=== PATIENT | male | born 1985 | race Caucasian/White ===

== ENCOUNTER 2016-04-28 12:56 | Inpatient (IN) | payer MEDICAID, OTHER ==
--- NOTE | 2016-04-28 13:19 | ED ---
Psych HPI - General Chief Complaint: Psychiatric Symptoms Stated Complaint: mental status Time Seen by Provider: 04/28/16 13:06 Source: patient, RN notes reviewed Mode of arrival: ambulatory Limitations: no limitations - History of Present Illness Initial Comments: 30-year-old male presents emergency Department for psychiatric evaluation. Patient is requesting be placed in movement. Patient states that he was on this before with other antipsychotics. Patient states he has been admitted the psychiatric facilities in the past. Patient denies suicidal or homicidal. Patient states he does not feel a states he just needs to be calm down. Patient denies any illicit drug use no alcohol use at this time. - Related Data Previous Rx's Medication Instructions Recorded OLANZapine [ZyPREXA] 20 mg PO DAILY #30 tablet 12/02/14 lamoTRIgine [LaMICtal] 50 mg PO BID #60 tab 12/02/14 Allergies Allergy/AdvReac Type Severity Reaction Status Date / Time divalproex sodium AdvReac Confusion Verified 04/28/16 13:02 [From Depakote] lithium AdvReac Unknown Verified 04/28/16 13:02 Review of Systems ROS Statement: Those systems with pertinent positive or pertinent negative responses have been documented in the HPI. ROS Other: All systems not noted in ROS Statement are negative. Past Medical History Past Medical History: No Reported History History of Any Multi-Drug Resistant Organisms: None Reported Past Surgical History: No Surgical Hx Reported Past Anesthesia/Blood Transfusion Reactions: No Reported Reaction Past Psychological History: Anxiety, Bipolar, Depression, Schizoaffective Disorder Smoking Status: Former smoker Past Alcohol Use History: None Reported Past Drug Use History: None Reported General Exam Limitations: no limitations General appearance: alert, in no apparent distress Head exam: Present: atraumatic, normocephalic, normal inspection Eye exam: Present: normal appearance, PERRL, EOMI. Absent: scleral icterus, conjunctival injection, periorbital swelling ENT exam: Present: normal exam, normal oropharynx, mucous membranes moist, TM's normal bilaterally, normal external ear exam Neck exam: Present: normal inspection, full ROM. Absent: tenderness, meningismus, lymphadenopathy Respiratory exam: Present: normal lung sounds bilaterally. Absent: respiratory distress, wheezes, rales, rhonchi, stridor Cardiovascular Exam: Present: normal rhythm, tachycardia, normal heart sounds. Absent: systolic murmur, diastolic murmur, rubs, gallop, clicks Neurological exam: Present: alert, oriented X3, CN II-XII intact Psychiatric exam: Present: anxious, other (Flight of ideas) Skin exam: Present: warm, dry, intact, normal color. Absent: rash Course Vital Signs 04/28/16 13:00 Temperature 98.1 F Pulse Rate 124 H Respiratory 20 Rate Blood Pressure 146/109 O2 Sat by Pulse 99 Oximetry Medical Decision Making - Lab Data Lab Results 04/28/16 Range/Units 13:45 Urine Opiates Screen Not Detected (NotDetected) Ur Oxycodone Screen Not Detected (NotDetected) Urine Methadone Screen Not Detected (NotDetected) Ur Propoxyphene Screen Not Detected (NotDetected) Ur Barbiturates Screen Not Detected (NotDetected) U Tricyclic Antidepress Not Detected (NotDetected) Ur Phencyclidine Scrn Not Detected (NotDetected) Ur Amphetamines Screen Not Detected (NotDetected) U Methamphetamines Scrn Not Detected (NotDetected) U Benzodiazepines Scrn Not Detected (NotDetected) Urine Cocaine Screen Not Detected (NotDetected) U Marijuana (THC) Screen Not Detected (NotDetected) Disposition Clinical Impression: Bipolar disorder, Acute psychosis Disposition: ADMITTED IP TO THIS [facility] Condition: Fair
[2016-04-28] MEDS ORDERED: ZIPRASIDONE 20 MG VIAL IM PRN (16:19)
[2016-04-28] MEDS ORDERED: LORazepam 2 MG/ML SYRINGE IM PRN (16:22)
[2016-04-28 16:55] LABS: Appearance,Urine Clear (Clear); Bilirubin,Urine Negative (Negative); Glucose,Urine (UA) Negative (Negative); Ketones,Urine Negative (Negative); Leukocyte Esterase,Urine Negative (Negative); Nitrite,Urine Negative (Negative); Protein,Urine Negative (Negative); Specific Gravity,Urine 1.005 (1.001-1.035); UA Billing (MACRO vs. MICRO) CHEM; Urobilinogen,Urine <2.0 mg/dL (<2.0)
[2016-04-28 17:07] VITALS: BMI 25.9
[2016-04-29 09:27] LABS: Basophils # (A) 0.1 k/uL (0-0.2); Basophils % (A) 1 %; CH 32.5; CHCM 33.8; Eosinophils # (A) 0.1 k/uL (0-0.7); Eosinophils % (A) 1 %; HCT 49.2 % (39.0-53.0); HDW 2.43; HGB 16.7 gm/dL (13.0-17.5); Luc # (Auto) 0.28; Luc % (Auto) 3; Lymphocytes # (A) 3.5 k/uL (1.0-4.8); Lymphocytes % (A) 35 %; MCH 32.8 pg (25.0-35.0); MCHC 33.9 g/dL (31.0-37.0); MCV 96.6 fL (80.0-100.0); Mean Platelet Volume 7.8; Monocytes # (A) 0.5 k/uL (0-1.0); Monocytes % (A) 5 %; Neutrophils # (A) 5.6 k/uL (1.3-7.7); Neutrophils % (A) 56 %; RDW 13.5 % (11.5-15.5); WBC (Perox) 10.18
[2016-04-29 09:46] LABS: ALT 57 U/L (21-72); AST 27 U/L (17-59); Alkaline Phosphatase 61 U/L (38-126); Anion Gap 15 mmol/L; Blood Urea Nitrogen 12 mg/dL (9-20); Calcium 10.3 mg/dL (8.4-10.2); Carbon Dioxide 26 mmol/L (22-30); Chloride 103 mmol/L (98-107); Glucose 162 mg/dL (74-99); Non-African American GFR(MDRD) >60 (>60 ml/min/1.73 sqM); Potassium 4.1 mmol/L (3.5-5.1); Sodium 144 mmol/L (137-145); Total Bilirubin 1.3 mg/dL (0.2-1.3); Total Protein 7.9 g/dL (6.3-8.2)
[2016-04-29] MEDS ORDERED: ZIPRASIDONE 20 MG VIAL IM ONE (09:53)
[2016-04-29] MEDS ORDERED: WATER FOR INJECTION, STERILE 10 ML IV ONE (09:53)
--- NOTE | 2016-04-29 10:16 | P.HP ---
Psychiatric H&P - . History & Physical: Allergies Allergy/AdvReac Type Severity Reaction Status Date / Time divalproex sodium AdvReac Confusion Verified 04/28/16 16:46 [From Depakote] lithium AdvReac Unknown Verified 04/28/16 16:46 Vital Signs Temp 98.5 F 04/29/16 03:02 Pulse 101 H 04/29/16 03:02 Resp 16 04/29/16 03:02 BP 137/106 04/29/16 03:02 Pulse Ox 96 04/28/16 17:32 Intake & Output 04/28/16 04/29/16 04/29/16 17:59 06:59 18:59 Weight 96.7 kg Laboratory Last Values WBC 10.0 k/uL (3.8-10.6) 04/29/16 09:04 RBC 5.10 m/uL (4.30-5.90) 04/29/16 09:04 Hgb 16.7 gm/dL (13.0-17.5) 04/29/16 09:04 Hct 49.2 % (39.0-53.0) 04/29/16 09:04 MCV 96.6 fL (80.0-100.0) 04/29/16 09:04 MCH 32.8 pg (25.0-35.0) 04/29/16 09:04 MCHC 33.9 g/dL (31.0-37.0) 04/29/16 09:04 RDW 13.5 % (11.5-15.5) 04/29/16 09:04 Plt Count 288 k/uL (150-450) 04/29/16 09:04 Neutrophils % 56 % 04/29/16 09:04 Lymphocytes % 35 % 04/29/16 09:04 Monocytes % 5 % 04/29/16 09:04 Eosinophils % 1 % 04/29/16 09:04 Basophils % 1 % 04/29/16 09:04 Neutrophils # 5.6 k/uL (1.3-7.7) 04/29/16 09:04 Lymphocytes # 3.5 k/uL (1.0-4.8) 04/29/16 09:04 Monocytes # 0.5 k/uL (0-1.0) 04/29/16 09:04 Eosinophils # 0.1 k/uL (0-0.7) 04/29/16 09:04 Basophils # 0.1 k/uL (0-0.2) 04/29/16 09:04 Urine Color Colorless 04/28/16 13:45 Urine Appearance Clear (Clear) 04/28/16 13:45 Urine pH 5.0 (5.0-8.0) 04/28/16 13:45 Ur Specific Sophia 1.005 (1.001-1.035) 04/28/16 13:45 Urine Protein Negative (Negative) 04/28/16 13:45 Urine Glucose (UA) Negative (Negative) 04/28/16 13:45 Urine Ketones Negative (Negative) 04/28/16 13:45 Urine Blood Negative (Negative) 04/28/16 13:45 Urine Nitrate Negative (Negative) 04/28/16 13:45 Urine Bilirubin Negative (Negative) 04/28/16 13:45 Urine Urobilinogen <2.0 mg/dL (<2.0) 04/28/16 13:45 Ur Leukocyte Esterase Negative (Negative) 04/28/16 13:45 Urine Opiates Screen Not Detected (NotDetected) 04/28/16 13:45 Ur Oxycodone Screen Not Detected (NotDetected) 04/28/16 13:45 Urine Methadone Screen Not Detected (NotDetected) 04/28/16 13:45 Ur Propoxyphene Screen Not Detected (NotDetected) 04/28/16 13:45 Ur Barbiturates Screen Not Detected (NotDetected) 04/28/16 13:45 U Tricyclic Antidepress Not Detected (NotDetected) 04/28/16 13:45 Ur Phencyclidine Scrn Not Detected (NotDetected) 04/28/16 13:45 Ur Amphetamines Screen Not Detected (NotDetected) 04/28/16 13:45 U Methamphetamines Scrn Not Detected (NotDetected) 04/28/16 13:45 U Benzodiazepines Scrn Not Detected (NotDetected) 04/28/16 13:45 Urine Cocaine Screen Not Detected (NotDetected) 04/28/16 13:45 U Marijuana (THC) Screen Not Detected (NotDetected) 04/28/16 13:45 04/29/16 10:06 IDENTIFYING DATA: This patient is a 30-year-old male who is admitted to the mental health unit through the emergency room for acute symptoms of psychosis. HPI: The patient's presents acutely psychotic. He refers to himself in the third person and everything he discusses is in a adventist context. His thought process is grossly disorganized. In session he has an ongoing conversation with himself. He does endorse difficulty sleeping he states appetite is been stable. He does not answer any other questions in a relevant fashion. I did review the records from his last hospitalization. At that time he was diagnosed with bipolar disorder with psychosis and was openly stabilized on Zyprexa and Lamictal. It seems that he has a long history of psychiatric hospitalizations and noncompliance with medications. He does not endorse having any outpatient mental health treatment recently. He was unable to answer questions regarding past episodes of jose. The session was terminated early due to his acute psychosis. PAST PSYCHIATRIC HISTORY: Based on past documentation it appears he's had at least 10 hospitalizations over the last 12 years. With his last hospitalization he was stabilized on Zyprexa and Lamictal. He had previously been on lithium Depakote Abilify Effexor and Geodon. For unknown reasons Depakote and lithium are listed as ALLERGIES. Uncertain if there has been any suicide attempts. He has worked with outpatient psychiatrist in the past but doesn't appear anybody recently. PMH: None reported ALLERGIES: Ideal and Depakote reactions unknown MEDICATIONS: None CHEMICAL DEPENDENCY HISTORY: He reports no use of alcohol marijuana or any other illicit drugs. Urine drug screen was negative. FAMILY PSYCHIATRIC HISTORY: Unknown FAMILY CHEMICAL DEPENDENCY HISTORY: Unknown SOCIAL HISTORY: The patient answers "I don't know" to all social history questions. The previous records states that he is and has 2 sons. He has 2 sisters. He previously denied any abuse history or legal history. He graduated high school and participated in some college classes. 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 MENTAL STATUS EXAM: The patient is a tall male he has a disheveled appearance he is dressed in his own clothing. He makes no eye contact and references the fact that he will not make eye contact. He has constant spontaneous pressured speech. He has an ongoing conversation with himself often referring to himself in the third person. He quotes scripture versus. Thought process is very disorganized. Almost every statement he makes is in a adventist context. Insight and judgment are poor. He demonstrates no verbal or aggressive behavior although he is noticeably intrusive on the unit. Cognitive testing not possible at this time. STRENGTHS/WEAKNESSES: Strengths: Presumed family support and housing weaknesses : Noncompliance with medication INTELLECTUAL FUNCTIONING: Presumed to be average IMPRESSIONS: [] 1. Bipolar 1 disorder manic with psychosis versus schizoaffective disorder 2. Psychosocial dysfunction due to current symptoms of jose and psychosis PLAN: The patient has been admitted to the mental health unit in voluntarily. We are not able to hold a relevant conversation pertaining to this admission and his need for treatment. I will complete a second clinical certificate. Invega 6 mg daily has been ordered. He verbalized resistance to using any psychotropic he has been on in the past including Zyprexa. Invega is ordered as it seems likely he will need a long-acting depot form of an antipsychotic due to his established history of medication noncompliance. He will undergo routine medical consultation. Social work will meet with the patient to complete a psychosocial assessment and begin discharge planning. We will monitor the patient for safety provide reality orientation when possible. We will involve family in treatment and discharge planning as he will allow.
[2016-04-29] MEDS: PALIPERIDONE 6 MG TAB.ER.24 PO SCH (10:20)
--- NOTE | 2016-04-29 10:45 | P.CONS ---
History of Present Illness - Reason for Consult Consult date: 04/29/16 Echo management - History of Present Illness This patient is a 30-year-old male who has a history of Bipolar Disorder and psychosis. He has been hospitalized here previously, his hospitalizations were in November 2014, 2012 and 2009. Patient is unable to give any history and cannot follow train of thought. Apparently his computer bookkeeper brought him in for irrational thoughts. He has apparently not been suicidal or homicidal. Urine drug screen was negative. TSH 2.950. Urinalysis negative. Review of Systems All systems: negative Constitutional: Denies chills, Denies fever Eyes: denies blurred vision, denies pain Ears, nose, mouth and throat: Denies headache, Denies sore throat Cardiovascular: Denies chest pain, Denies shortness of breath Respiratory: Denies cough Gastrointestinal: Denies abdominal pain, Denies diarrhea, Denies nausea, Denies vomiting Musculoskeletal: Denies myalgias Integumentary: Denies pruritus, Denies rash Neurological: Denies numbness, Denies weakness Psychiatric: Reports confusion, Reports disorientation, Reports irritability, Reports mood swings, Reports paranoia, Denies anxiety, Denies depression Endocrine: Denies fatigue, Denies weight change Past Medical History Past Medical History: No Reported History History of Any Multi-Drug Resistant Organisms: None Reported Past Surgical History: No Surgical Hx Reported Past Anesthesia/Blood Transfusion Reactions: No Reported Reaction Past Psychological History: Anxiety, Bipolar, Depression, Schizoaffective Disorder Smoking Status: Never smoker Past Alcohol Use History: None Reported Past Drug Use History: None Reported Medications and Allergies Home Medications Medication Instructions Recorded Confirmed Type No Known Home Medications [No 04/28/16 04/28/16 History Known Home Medications] Allergies Allergy/AdvReac Type Severity Reaction Status Date / Time divalproex sodium AdvReac Confusion Verified 04/28/16 16:46 [From Depakote] lithium AdvReac Unknown Verified 04/28/16 16:46 Physical Exam Vitals: Vital Signs Temp Pulse Resp BP Pulse Ox 04/29/16 03:02 98.5 F 101 H 16 137/106 04/28/16 17:32 97.2 F L 115 H 15 147/91 96 04/28/16 17:02 97.2 F L 147 H 15 147/91 96 Intake and Output 04/28/16 04/29/16 04/29/16 21:59 06:59 14:59 Other: Weight 96.7 kg Patient Weight 04/30/16 06:59 Weight 96.7 kg Gen: This is a 30-year-old male. He is awake and alert. He is talking continuously but making no sense. Some paranoid ideas mentioned. HEENT: Head is atraumatic, normocephalic. Pupils equal, round. Sclerae is anicteric. NECK: Supple. No JVD. No lymphadenopathy. No thyromegaly. LUNGS: Clear to auscultation. No wheezes or rhonchi. No intercostal retractions. HEART: Regular rate and rhythm. No murmur. ABDOMEN: Soft. Bowel sounds are present. No masses. No tenderness. EXTREMITIES: No pedal edema. No calf tenderness. NEUROLOGICAL: Patient is awake, alert. Cranial nerves 2 through 12 are grossly intact. Results CBC & Chem 7: 04/29/16 09:04 04/29/16 09:04 Labs: Abnormal Lab Results - Last 24 Hours (Table) 04/29/16 Range/Units 09:04 Glucose 162 H (74-99) mg/dL Calcium 10.3 H (8.4-10.2) mg/dL Assessment and Plan Plan: 1. Bipolar disorder with psychotic features. Patient admitted to the mental health unit. Continue current plan of care. Impression and plan of care have been directed as dictated by the signing physician. Myrna Miranda nurse practitioner acting as scribe for signing physician. Time with Patient: Greater than 30
[2016-04-29] MEDS: ACETAMINOPHEN TAB 325 MG TAB PO PRN (22:40)
[2016-04-30] MEDS: PALIPERIDONE 6 MG TAB.ER.24 PO SCH (09:24)
--- NOTE | 2016-04-30 15:21 | P.PN ---
Progress Note - Text SUBJECTIVE: I reviewed the medical record, attempted to interview Mr. Hughes and discuss his treatment and treatment plan during team meeting. He presented voluntarily to the unit on 04/29/2016 acutely psychotic. According to the admission assessment he referred to himself and third person. His thinking was disorganized and he was religiously preoccupied. Dr. Saleh, who completed initial assessment, prescribed Invega 6 mg daily and Mr. John has been compliant with the first 2 doses. Early this morning he approached me acutely distress. He demanded that we obtain "the porter" so that "we" could be allowed to adjust the temperature on the thermostat in their rooms. He talked about living in a "mission" before he came in hospital and the technical specialist cytogenetics at the "mission" recommended that he come to the hospital. OBJECTIVE: He presented as a disheveled appearing 30-year-old tall male who paced the unit and loudly saying a muslim hymn. He did not make eye contact. During our interaction he looked off to the side or towards his ceiling. However, he appeared to attend to the exam. He had no distinguishing features or prominent physical abnormalities. He had a bright facial expression. He was alert and oriented to person, place and time. He was restless and agitated but showed no abnormal movements. His speech was spontaneous with increased volume. He had no articulation difficulties. His affect was bright and inappropriate but not intense. He denied suicidal ideation or wishes. He denied homicidal ideation. He denied depressive cognitions such as hopelessness, helplessness and worthlessness. He did not express ideas of reference. He was religiously preoccupied and perseverated on muslim themes. He did not express paranoid ideation. His thinking was illogical and incoherent. He denied hallucinations and did not appear to be responding to internal stimuli. He received 1 mg Ativan and 20 mg Geodon yesterday evening for agitation restlessness. ASSESSMENT: He is severely mentally ill with minimal change in his clinical status from admission. PLAN: Continue inpatient psychiatric hospitalization due to the severity of psychotic symptoms. Continue Invega 6 mg daily and transition to Invega Sustainna. Continue Geodon 20 mg IM twice a day and/or prazepam 1 mg by mouth/ IM every 8 hours when necessary for agitation. Encourage participation in therapeutic groups as tolerated. Evaluate clinical status response to treatment daily basis.
[2016-05-01] MEDS: ACETAMINOPHEN TAB 325 MG TAB PO PRN ×3 (01:12→21:49)
[2016-05-01] MEDS: LORazepam 1 MG TAB PO PRN ×3 (09:05→21:30)
[2016-05-01] MEDS: PALIPERIDONE 6 MG TAB.ER.24 PO SCH (09:05)
[2016-05-01] MEDS ORDERED: PALIPERIDONE IM 234 MG/1.5 ML SYG IM STA (09:53)
--- NOTE | 2016-05-01 13:54 | P.PN ---
Progress Note - Text SUBJECTIVE: I reviewed the medical record, interviewed Mr. Hughes and discuss his treatment and treatment plan during team meeting. He talked about a note he gave me yesterday. Of note was written on a partially colored image and contain fragmented statements not organized into coherent paragraph: "Less stress for everybody. Make great light. Fluorescent light tube colors and overlays. Inexpensive, saves money. Will help everyone up here! From [place]! Inexpensive and actually makes light softer, yet clear." He talked about difficulty with bright lights particular fluorescent lights. He talked about difficulties with the bright fluorescent lights at the care home where he had been living . He is experiencing similar difficulties with the overhead lights on the unit. He talked about components of light affecting bone and teeth and causing impairment in vision. He stated that he slept well last night (according to EMR he slept 6 hours). He denied side effects to the current dose of Invega. He has attempted to the recommendation to to switch from oral to Invega Sustenna. OBJECTIVE: He presented as a casually groomed tall male who did not make eye contact. He looked at the floor or to the side during the interview. However, he appeared to attend and concentrate on the exam. He had no distinguishing features or prominent physical abnormalities. He had a distressed facial expression. He was alert and oriented to person, place and time. He showed slight psychomotor retardation but no abnormal involuntary movements. His speech was spontaneous with a halting rhythm. His affect was blunted but stable and appropriate. He denied suicidal ideation or wishes. He denied homicidal ideation. He denied depressive cognitions such as hopelessness, helplessness and worthlessness. He ruminated about the artificial lights on the unit and made vague references to overvalued beliefs about the effects of light on his body. He made some references to his shinto or spiritual beliefs but was not preoccupied and his religiosity did not dominate the interview. His thinking was concrete but his associations were coherent and logical. He denied hallucinations and did not appear to be responding to internal stimuli. ASSESSMENT: He is much less restless and euphoric than yesterday. He is expressing vague disorganized overvalued ideas about artificial light. Overall , he appears moderately mentally ill and moderately improved from yesterday. PLAN: Continue Invega 6 mg by mouth daily. Begin Invega Sustenna 234 mg IM today with second injection in 5-7 days. Encouraged continued participation in therapeutic groups and activities. Evaluate cognitive status and response to treatment on a daily basis.
[2016-05-02] MEDS: PALIPERIDONE 6 MG TAB.ER.24 PO SCH (09:24)
--- NOTE | 2016-05-02 13:49 | P.PN ---
Progress Note - Text SUBJECTIVE: I reviewed the medical record, interviewed Mr. John and discuss his treatment and treatment plan during team meeting. He was guarded and defensive during the interview. He refused to talk about his subjective experiences. For example, in response to questions about "unusual experiences" he replied "I rather not talk about." He mumbled a statement about people not understanding. Since he would not talk about his psychotic experiences I ask him about the severity of the "unusual experiences". He will replied that they are still there but "less than before." He talked about feeling depressed and having thoughts of suicide. He also talked about his concerns about a male patient, whom he believes is homosexual , is making advances towards him. He would not talk about discharge plans. He denied side effects to Invega. We reviewed the plan to transition from oral too long acting injectable Invega. He remains agreeable with this plan. OBJECTIVE: He presented as a tall disheveled appearing male who was pleasant on approach. He did not make eye contact but appeared to attend to the interview. He had a depressed facial expression. He cried intermittently during the interview. He was alert and oriented to person, place and time. He showed slight psychomotor retardation but no abnormal movements. His speech was nonspontaneous and had decreased rate, rhythm and volume. He had no articulation difficulties. His affect was depressed. He has suicidal ideation but denied intent or plan. He denied homicidal ideation. He denied feeling hopeless, helpless or worthless. He would not answer questions about psychotic symptoms such as auditory or visual hallucinations, ideas reference, thought insertion, thought broadcasting or thought control. His thinking was concrete but his associations appeared organized. He does not appear to be responding to internal stimuli. ASSESSMENT: He is moderately mentally ill and moderately improved from admission. He is less overtly psychotic and agitated than on admission and now appears depressed and is having suicidal thoughts. There is no evidence of adverse effects to the current dose of Invega. PLAN: Continue inpatient hospitalization due to the severity of psychotic symptoms. Continue Invega 6 mg by mouth daily until the second injection of Invega Sustenna. Continue suicide precautions with 15 minute checks. Social work to coordinate aftercare; we may need to be discharged to a correction. Encouraged continued participation in therapeutic groups and activities. Evaluate clinical status response to treatment daily basis.
[2016-05-02] MEDS: ACETAMINOPHEN TAB 325 MG TAB PO PRN (13:57)
[2016-05-02] MEDS: LORazepam 1 MG TAB PO PRN (20:35)
[2016-05-03] MEDS: LORazepam 1 MG TAB PO PRN ×3 (05:13→21:06)
[2016-05-03] MEDS: PALIPERIDONE 6 MG TAB.ER.24 PO SCH (08:10)
[2016-05-03] MEDS: ACETAMINOPHEN TAB 325 MG TAB PO PRN ×2 (10:46→21:35)
--- NOTE | 2016-05-03 11:48 | P.PN ---
Progress Note - Text SUBJECTIVE: I reviewed the medical record, interviewed Mr. Hughes and discuss his treatment and treatment plan during team meeting. He stated that he "deferred" the probate hearing and will agreed to continued mental health treatment. He spoke with his mother this morning. She is arranging to come from [place] to visit him. He stated that before he became unwell he was speaking with his parents on a daily basis. He talked about having developed an unusual belief where he refused to communicate with his parents. He would not talk about the belief but referred to it as "crazy". He asked if we can assist him with finding "home". I explained we can talk to [facility] about AFC home placement. He denied side effects to Invega. OBJECTIVE: He presented as a tall disheveled appearing male who was pleasant on approach. He did not make eye contact but appeared to attend to the interview. He had a blunted and depressed facial expression. He was alert and oriented to person, place and time. He showed slight psychomotor retardation but no abnormal movements. His speech was spontaneous and had decreased rate, rhythm and volume. He had no articulation difficulties. His affect was depressed. He denied current suicidal ideation and wishes. He denied homicidal ideation. He denied feeling hopeless, helpless or worthless. He did not wish to talk about psychotic symptoms such as auditory or visual hallucinations, ideas reference, thought insertion, thought broadcasting or thought control. His thinking was concrete but his associations appeared organized. He does not appear to be responding to internal stimuli. ASSESSMENT: He is moderately mentally ill and moderately improved from admission. He is less overtly psychotic and agitated than on admission and less depressed than yesterday. There is no evidence of adverse effects to the current dose of Invega. PLAN: Continue inpatient hospitalization due to the severity of psychotic symptoms. Continue Invega 6 mg by mouth daily until the second injection of Invega Sustenna. Continue suicide precautions with 15 minute checks. Social work to coordinate aftercare; discuss AFC placement with [facility]. Encouraged continued participation in therapeutic groups and activities. Evaluate clinical status response to treatment daily basis.
[2016-05-04] MEDS: PALIPERIDONE 6 MG TAB.ER.24 PO SCH (08:25)
[2016-05-04] MEDS: LORazepam 1 MG TAB PO PRN ×2 (08:26→23:21)
[2016-05-04] MEDS: ACETAMINOPHEN TAB 325 MG TAB PO PRN ×2 (11:31→15:33)
--- NOTE | 2016-05-04 12:06 | P.PN ---
Progress Note - Text SUBJECTIVE: I reviewed the medical record, interviewed Mr. Hughes and discuss his treatment and treatment plan during team meeting. He complained about the fluorescent lights in the interview room. He talked about the lights causing pain in his teeth. He referred me to a webpage that discusses the health problems associated with the fluorescent and LED lights. I inquired about psychotic symptoms. Although he denied classic symptoms such as auditory or visual hallucinations, thought insertion, thought broadcasting etc., he talked about difficulty playing a simple card game. He appeared to place special meaning to some of the categories particularly those suggestive of sexual relations. He denied side effects to Invega. OBJECTIVE: He presented as a tall disheveled appearing male who was pleasant on approach. He appeared in distress and frequently covered his face with his hands. He made intermittent eye contact and kept his eyes shaded from the light. He appeared to attend to the interview. He had a blunted facial expression. He was alert and oriented to person, place and time. He showed slight psychomotor retardation but no abnormal movements. His speech was spontaneous and had decreased rate, rhythm and volume. He frequently began then stopped talking the middle of sentences. He had no articulation difficulties. His affect was blunted but bright. He denied current suicidal ideation and wishes. He denied homicidal ideation. He denied feeling hopeless, helpless or worthless. He did not wish to talk about psychotic symptoms such as auditory or visual hallucinations, ideas reference, thought insertion, thought broadcasting or thought control. His thinking was concrete but his associations appeared organized. He does not appear to be responding to internal stimuli. ASSESSMENT: He is moderately mentally ill and moderately improved from admission. He is less overtly psychotic and agitated than on admission and doesn't appear depressed. There is no evidence of adverse effects to the current dose of Invega. PLAN: Continue inpatient hospitalization due to the severity of psychotic symptoms. Continue Invega 6 mg by mouth daily until the second injection of Invega Sustenna on 05/07/2016. Continue suicide precautions with 15 minute checks. Social work to coordinate aftercare; he will most likely be discharged to a halfway.. Encouraged continued participation in therapeutic groups and activities. Evaluate clinical status response to treatment daily basis.
[2016-05-05] MEDS: PALIPERIDONE 6 MG TAB.ER.24 PO SCH (09:34)
[2016-05-05] MEDS: ACETAMINOPHEN TAB 325 MG TAB PO PRN ×2 (14:18→22:04)
[2016-05-05] MEDS: LORazepam 1 MG TAB PO PRN ×2 (14:19→22:05)
--- NOTE | 2016-05-05 16:34 | P.PN ---
Progress Note - Text Interval history: Patient seen in cross coverage today for Dr. Glynn. He is taking his psychotropic medication, does not voice any adverse side effects. He does talk about his sensitivity to the light and it creates some pain in the facial area. Mental status exam: He is alert and cooperative with the interview. His speech is fluent, not rapid or pressured. His thought processes are organized. He does not verbalize any hallucinations. He denies any thoughts of harm to self or others. He does not show any agitation. Plan: We'll maintain current psychotropic medication. We'll monitor for any adverse psychotropic medication side effects. We'll continue to cover this patient for Dr. Glynn through the weekend.
[2016-05-06] MEDS: PALIPERIDONE 6 MG TAB.ER.24 PO SCH (09:40)
[2016-05-06] MEDS: LORazepam 1 MG TAB PO PRN ×2 (12:19→19:48)
[2016-05-06] MEDS: ACETAMINOPHEN TAB 325 MG TAB PO PRN ×2 (12:19→19:48)
--- NOTE | 2016-05-06 12:34 | P.PN ---
Progress Note - Text Interval history: Patient reports that he slept about 5-6 hours last night. He seems to be eating well. He does not voice any adverse psychotropic medication side effects. He plans on attending some groups this afternoon. He is seen in cross coverage today for Dr. Glynn. Mental status exam: He is alert and cooperative with the interview. His speech is fluent, not rapid or pressured. Thought processes are organized. His affect does show some range. He does not verbalize any hallucinations. He denies any thoughts of harm to self or others. He does not make any stormy delusional statements. He does not show any agitation. Plan: We'll maintain current psychotropic medication regimen. Continue to monitor for any medication side effects. Dr. Glynn to resume care this patient starting tomorrow.
[2016-05-07] MEDS: PALIPERIDONE 6 MG TAB.ER.24 PO SCH (08:47)
[2016-05-07] MEDS: ACETAMINOPHEN TAB 325 MG TAB PO PRN ×2 (08:49→20:04)
[2016-05-07] MEDS: LORazepam 1 MG TAB PO PRN ×2 (08:49→20:04)
[2016-05-07] MEDS ORDERED: PALIPERIDONE IM 156 MG/ML SYG IM STA (10:22)
--- NOTE | 2016-05-07 11:38 | P.PN ---
Progress Note - Text SUBJECTIVE: I reviewed the medical record, interviewed Mr. Hughes and discussed his treatment and treatment plan during team meeting. He talked about feeling uncomfortable in the presence of another, elderly, patient. He talked about the patient belonging to the same christianity and talked about the the way the other patient looked at some of the women on the unit. He did not expressed clear organized delusional belief but was clearly guarded and suspicious towards this individual. He stated that he is feeling better since his parents visited over the weekend. They're encouraging him to return to [place] account but he is ambivalent because his and children will remain in [place]. He talked about "possibly" living with someone from his adventism. He denied side effects to Invega. OBJECTIVE: He presented as a tall casually groomed male who was pleasant on approach. He didn't appear distressed as he had prior interviews. He made intermittent eye contact but did not keep his eyes shaded from the light He appeared to attend to the interview. He had a blunted but bright facial expression. He was alert and oriented to person, place and time. He showed slight psychomotor retardation but no abnormal movements. His speech was spontaneous and had normal rate, rhythm and volume. He did not demonstrate thought blocking. He had no articulation difficulties. He was guarded and suspicious. He denied current suicidal ideation and wishes. He denied homicidal ideation. He denied feeling hopeless, helpless or worthless. He denied that he is experiencing s auditory or visual hallucinations, ideas reference, thought insertion, thought broadcasting or thought control. He did not express clear and organized delusional beliefs. His thinking was concrete but his associations appeared organized. He did not appear to be responding to internal stimuli. ASSESSMENT: He is moderately mentally ill and moderately improved from admission. He is less overtly psychotic and agitated than on admission and doesn't appear depressed. There is no evidence of adverse effects to the current dose of Invega. PLAN: Continue inpatient hospitalization due to the severity of psychotic symptoms. Aminister Invega Sustenna 156mg discontinue Invega 6 mg by mouth daily Continue suicide precautions with 15 minute checks. Social work to coordinate aftercare; he may return to [place] to live with his parents temporarily Encouraged continued participation in therapeutic groups and activities. Evaluate clinical status response to treatment daily basis.
[2016-05-08] MEDS: LORazepam 1 MG TAB PO PRN ×2 (05:36→15:18)
[2016-05-08] MEDS: ACETAMINOPHEN TAB 325 MG TAB PO PRN ×3 (05:36→21:21)
--- NOTE | 2016-05-08 15:04 | P.PN ---
Progress Note - Text SUBJECTIVE: I reviewed the medical record, interviewed Mr. Hughes and discussed his treatment and treatment plan during team meeting. We talked about the family meeting. According to the public health social worker the family meeting with his mom and dad was unproductive. He was extremely paranoid and defensive. He was angry with her recommendation to continue Invega Sustenna injections and receive outpatient treatment through [facility]. Stated that he was angry that we were recommending he continue with the Abilify injections through [facility]. He feels uncomfortable going to [facility] because it is near where his and children left. Since the family meeting Has thought about his behavior and recognizes that it was inappropriate. He now agrees to follow our recommendations including aftercare at [facility]. He stated he spoke with his parents and apologized for his behavior. OBJECTIVE: He presented as a tall casually groomed male who was pleasant on approach. He made intermittent eye contact and did not keep his eyes shaded from the light. He appeared to attend to the interview. He had a blunted facial expression. He was alert and oriented to person, place and time. He showed slight psychomotor retardation but no abnormal movements. His speech was spontaneous and had normal rate, rhythm and volume. He did not demonstrate thought blocking. He had no articulation difficulties. He was guarded and suspicious. He denied current suicidal ideation and wishes. He denied homicidal ideation. He denied feeling hopeless, helpless or worthless. He denied that he is experiencing s auditory or visual hallucinations, ideas reference, thought insertion, thought broadcasting or thought control. He did not express clear and organized delusional beliefs. His thinking was concrete but his associations appeared organized. He did not appear to be responding to internal stimuli. ASSESSMENT: He is moderately mentally ill and moderately improved from admission. He is less overtly psychotic and agitated than on admission than on admission. There is no evidence of adverse effects to the current dose of Invega. PLAN: Continue inpatient hospitalization due to the severity of psychotic symptoms. Continue Invega Sustenna 234 mg monthly. Continue suicide precautions with 15 minute checks. Social work to coordinate aftercare; he may return to [place] to live with his parents temporarily. Encouraged continued participation in therapeutic groups and activities. Evaluate clinical status response to treatment daily basis.
[2016-05-09] MEDS: ACETAMINOPHEN TAB 325 MG TAB PO PRN ×3 (01:24→23:23)
[2016-05-09] MEDS: MAG HYDROX/AL HYDROX/SIMETH 30 ML CUP PO PRN ×3 (03:18→23:23)
[2016-05-09] MEDS: LORazepam 1 MG TAB PO PRN ×2 (09:27→23:24)
[2016-05-09 09:30] VITALS: PULSE 123; RESP 18
--- NOTE | 2016-05-09 13:27 | P.PN ---
Progress Note - Text SUBJECTIVE: I reviewed the medical record, interviewed Mr. Hughes and discussed his treatment and treatment plan during team meeting. He request to be discharged today. He stated that his mother is planning to remain in [place] until they find him suitable housing. He agreed to continue with the Invega Sustenna injections and receive mental health services through [facility]. OBJECTIVE: He presented as a malodorous and disheveled appearing male who was pleasant on approach. He made intermittent eye contact and did not keep his eyes shaded from the light. He appeared to attend to the interview. He had a blunted facial expression. He was alert and oriented to person, place and time. He showed slight psychomotor retardation but no abnormal movements. His speech was spontaneous and had normal rate, rhythm and volume. He did not demonstrate thought blocking. He had no articulation difficulties. He was guarded and suspicious but did not express clear or organized paranoid thoughts or delusional beliefs. He denied current suicidal ideation and wishes. He denied homicidal ideation. He denied feeling hopeless, helpless or worthless. He denied that he is experiencing s auditory or visual hallucinations, ideas reference, thought insertion, thought broadcasting or thought control. . His thinking was concrete but his associations appeared organized. He did not appear to be responding to internal stimuli. ASSESSMENT: He is moderately mentally ill and moderately improved from admission. He is less overtly psychotic and agitated than on admission than on admission but has very poor hygiene. There is no evidence of adverse effects to the current dose of Invega. PLAN: Continue inpatient hospitalization due to the severity of psychotic symptoms. Continue Invega Sustenna 234 mg monthly. Continue suicide precautions with 15 minute checks. Social work to liaison with mother about residential alternatives. Encouraged continued participation in therapeutic groups and activities. Evaluate clinical status response to treatment daily basis.
[2016-05-10 06:29] VITALS: BP 123/81; TEMP 97.8
[2016-05-10] MEDS: ACETAMINOPHEN TAB 325 MG TAB PO PRN (06:32)
[2016-05-10] MEDS: MAG HYDROX/AL HYDROX/SIMETH 30 ML CUP PO PRN (09:46)
[2016-05-10] MEDS: LORazepam 1 MG TAB PO PRN (09:46)
--- NOTE | 2016-05-10 11:42 | P.DS ---
Providers Date of admission: 04/28/16 16:18 Attending physician: Fran Glynn MD Consults: 04/28/16 16:19 Consult Physician Routine Consulting Provider: Fran Goss Consult Reason/Comments: follow up H & P Do you want consulting provider notified?: Yes Primary care physician: Stated None - Discharge Diagnosis(es) (1) Bipolar I disorder, most recent episode manic, severe with psychotic features Current Visit: Yes Status: Acute Priority: High Hospital Course: Mr. John is a 30-year-old male who has a history of bipolar disorder. He presented to the unit acutely psychotic. On admission he was hyperreligious and referred to himself in the third person. His thought process was grossly disorganized. He was restless. He demonstrated pressured speech and flight of ideas. His thinking was disorganized. Please see admission history dated 04/29/2016. We admitted him involuntarily to the psychiatric unit under the care of this designer/writer. We provided a biopsychosocial assessment. The cruise consultant winch runner completed the initial medical history and physical exam. The winch runner's only diagnosis was bipolar disorder with psychotic features. He submitted the Petition and supporting Clinical Certificate's to probate court. He met with his contracts attorney and stipulated. His restlessness required occasional use of IM lorazepam. However, her he posed no management problem and displayed no behavioral dyscontrol. He consented to Invega 6 mg daily. Once we establish tolerance we titrated Invega Sustenna beginning with 234 mg IM followed by 150 mg after 1 week. The manager social had several contacts with his parents. They came to [place] from [place] for a family meeting. He became acutely paranoid during the family meeting regarding a recommendation for [facility] mental health and continue treatment with Invega cisterna. During the course of this hospitalization his clinical condition markedly improved. At the time of discharge he was not hyper yazidism but remained religiously preoccupied. He denied auditory or visual hallucinations and did not appear to be responding to internal stimuli. His thinking was abstract and his associations were organized, coherent and goal directed. He denied thought disturbances such as ideas reference, thought insertion, thought broadcasting or thought control. His mother plans to remain in [place] until his family can find him safe and supportive housing. He agreed to follow-up with [facility] and continue monthly Invega Sustenna injections. Patient Condition at Discharge: Fair Plan - Discharge Summary New Discharge Prescriptions: Paliperidone IM [Invega Sustenna] 234 mg IM QMONTH #1 syr Discharge Medication List Paliperidone IM [Invega Sustenna] 234 mg IM QMONTH #1 syr 05/10/16 [Rx] Follow up Appointment(s)/Referral(s): None,Stated [Primary Care Provider] - 1-2 days Discharge Disposition: HOME SELF-CARE
== END 2016-05-10 17:00 | disposition home or self-care (01) | DRG 885 ==
LOC: EC 12:56 → 3MHU 16:18
PROVIDERS: ADMIT Psychiatry & Neurology Psychiatry; ATTEND Psychiatry & Neurology Psychiatry
DX: F31.2 Bipolar disorder, current episode manic severe with psychotic features (principal); R45.851 Suicidal ideations; F25.9 Schizoaffective disorder, unspecified; F41.9 Anxiety disorder, unspecified; G47.9 Sleep disorder, unspecified; R45.1 Restlessness and agitation; Z87.891 Personal history of nicotine dependence; Z91.14 Patient's other noncompliance with medication regimen; Z88.8 Allergy status to other drugs, medicaments and biological substances
CPT/HCPCS: 80053; 80306; 81003; 82075; 84443; 85025; 99284

== ENCOUNTER 2016-05-22 07:00 | Emergency (ER) | payer OTHER ==
[2016-05-22 07:11] VITALS: TEMP 98.5
[2016-05-22] MEDS ORDERED: ONDANSETRON 4 MG/2 ML VIAL IVP STA (07:47)
[2016-05-22] MEDS ORDERED: SODIUM CHLORIDE 0.9% 500 ML IV STA (07:47)
[2016-05-22] MEDS ORDERED: SODIUM CHLORIDE 0.9% 1,000 ML IV STA (07:47)
[2016-05-22 08:29] LABS: Basophils % (A) 0 %; CH 32.8; CHCM 35.3; Eosinophils # (A) 0.1 k/uL (0-0.7); Eosinophils % (A) 1 %; HCT 39.7 % (39.0-53.0); HDW 2.37; Luc # (Auto) 0.15; Luc % (Auto) 1; Lymphocytes # (A) 1.8 k/uL (1.0-4.8); Lymphocytes % (A) 18 %; MCH 32.9 pg (25.0-35.0); MCHC 35.2 g/dL (31.0-37.0); MCV 93.5 fL (80.0-100.0); Mean Platelet Volume 6.9; Monocytes # (A) 0.5 k/uL (0-1.0); Monocytes % (A) 5 %; Neutrophils # (A) 7.5 k/uL (1.3-7.7); Neutrophils % (A) 74 %; RBC 4.25 m/uL (4.30-5.90); WBC 10.1 k/uL (3.8-10.6); WBC (Perox) 10.56
[2016-05-22 08:48] LABS: ALT 184 U/L (21-72); AST 89 U/L (17-59); Alkaline Phosphatase 67 U/L (38-126); Anion Gap 12 mmol/L; Blood Urea Nitrogen 11 mg/dL (9-20); Calcium 8.9 mg/dL (8.4-10.2); Carbon Dioxide 23 mmol/L (22-30); Chloride 100 mmol/L (98-107); Glucose 95 mg/dL (74-99); Non-African American GFR(MDRD) >60 (>60 ml/min/1.73 sqM); Sodium 135 mmol/L (137-145); Total Bilirubin 0.4 mg/dL (0.2-1.3); Total Protein 6.2 g/dL (6.3-8.2)
--- NOTE | 2016-05-22 10:00 | ED ---
General Adult HPI - General Chief complaint: Recheck/Abnormal Lab/Rx Stated complaint: Med Reaction Time Seen by Provider: 05/22/16 07:29 Source: patient Mode of arrival: ambulatory Limitations: no limitations - History of Present Illness Initial comments: This 30-year-old white male presents complaining of having some intermittent jaw pain for the last 2 days. He's had occasional nausea but no vomiting. His throat apparently has been burning for months. He received an Invega Sutenna shot on 05/16/2016 and is unsure if this could be causing his symptoms. He denies any chest pain or shortness of breath. No fever or chills. He denies any previous similar symptoms. He apparently was up pacing most of the night. He was recently hospitalized for psychiatric concerns this past month. These have improved. He denies any new medications otherwise. No other complaints or modifying factors. - Related Data Home Medications Medication Instructions Recorded Confirmed clonazePAM [KlonoPIN] 0.5 mg PO BID PRN 05/22/16 05/22/16 clonazePAM [KlonoPIN] 2 mg PO HS PRN 05/22/16 05/22/16 Previous Rx's Medication Instructions Recorded Paliperidone IM [Invega Sustenna] 234 mg IM QMONTH #1 syr 05/10/16 Allergies Allergy/AdvReac Type Severity Reaction Status Date / Time soy Allergy Unknown Verified 05/22/16 08:49 divalproex sodium AdvReac Confusion Verified 05/22/16 08:49 [From Depakote] lithium AdvReac Unknown Verified 05/22/16 08:49 Review of Systems ROS Statement: Those systems with pertinent positive or pertinent negative responses have been documented in the HPI. ROS Other: All systems not noted in ROS Statement are negative. Past Medical History Past Medical History: No Reported History History of Any Multi-Drug Resistant Organisms: None Reported Past Surgical History: No Surgical Hx Reported Past Anesthesia/Blood Transfusion Reactions: No Reported Reaction Past Psychological History: Anxiety, Bipolar, Depression, Schizoaffective Disorder Smoking Status: Never smoker Past Alcohol Use History: None Reported Past Drug Use History: None Reported General Exam - General Exam Comments Initial Comments: GENERAL: The patient is well nourished and well hydrated. VITAL SIGNS: Heart rate, blood pressure, respiratory rate reviewed as recorded in nurse's notes. EYES: Pupils are round and reactive. Extraocular movements are intact. No conjunctival / lid redness or swelling. ENT: No external evidence of injury, swelling, or ecchymosis. Airway is patent. Throat is clear. NECK: Nontender. No swelling or evidence of injury. No subcutaneous emphysema. Trachea is midline. No thyroid mass. HEART: Regular rate and rhythm. Good peripheral pulses. LUNGS/CHEST: Breath sounds clear and equal bilaterally. No rales, rhonchi, or wheezes. No ecchymosis, subcutaneous emphysema, or tenderness. ABDOMEN: Abdomen soft without tenderness. No palpable masses or organomegaly. No peritoneal signs. No abdominal wall swelling or ecchymosis. EXTREMITIES: No extremity tenderness. Normal muscle tone and function. No thoracolumbar tenderness. NEUROLOGIC: Sensation is grossly intact. Cranial nerve exam reveals face is symmetrical, tongue is midline, speech is clear. SKIN: No abrasions or ecchymosis is noted. No induration or masses noted. PSYCHIATRIC: Alert and oriented. Appropriate behavior and judgment. Limitations: no limitations Course Vital Signs 05/22/16 07:07 Temperature 98.5 F Pulse Rate 99 Respiratory 17 Rate Blood Pressure 144/103 O2 Sat by Pulse 95 Oximetry Medical Decision Making - Medical Decision Making The patient was seen and examined. All diagnostics were reviewed. The patient had a laboratory analysis which showed some mild transaminitis. He did receive some IV fluids. He is feeling much improved on recheck. He states that all of his symptoms have resolved. He is sleeping. The exact cause of his symptoms are not definitively determined. It is felt as though he should follow-up with his primary care physician for recheck of his liver function studies. Is also felt as though he should follow-up with his psychiatrist to see if they feel as though his symptoms could be related to the Invega shot. - Lab Data Result diagrams: 05/22/16 08:10 05/22/16 08:10 Lab Results 05/22/16 05/22/16 Range/Units 08:10 08:10 WBC 10.1 (3.8-10.6) k/uL RBC 4.25 L (4.30-5.90) m/uL Hgb 14.0 (13.0-17.5) gm/dL Hct 39.7 (39.0-53.0) % MCV 93.5 (80.0-100.0) fL MCH 32.9 (25.0-35.0) pg MCHC 35.2 (31.0-37.0) g/dL RDW 13.0 (11.5-15.5) % Plt Count 257 (150-450) k/uL Neutrophils % 74 % Lymphocytes % 18 % Monocytes % 5 % Eosinophils % 1 % Basophils % 0 % Neutrophils # 7.5 (1.3-7.7) k/uL Lymphocytes # 1.8 (1.0-4.8) k/uL Monocytes # 0.5 (0-1.0) k/uL Eosinophils # 0.1 (0-0.7) k/uL Basophils # 0.0 (0-0.2) k/uL Sodium 135 L (137-145) mmol/L Potassium 4.0 (3.5-5.1) mmol/L Chloride 100 (98-107) mmol/L Carbon Dioxide 23 (22-30) mmol/L Anion Gap 12 mmol/L BUN 11 (9-20) mg/dL Creatinine 0.67 (0.66-1.25) mg/dL Est GFR (MDRD) Af Amer >60 (>60 ml/min/1.73 sqM) Est GFR (MDRD) Non-Af >60 (>60 ml/min/1.73 sqM) Glucose 95 (74-99) mg/dL Calcium 8.9 (8.4-10.2) mg/dL Total Bilirubin 0.4 (0.2-1.3) mg/dL AST 89 H (17-59) U/L ALT 184 H (21-72) U/L Alkaline Phosphatase 67 (38-126) U/L Total Protein 6.2 L (6.3-8.2) g/dL Albumin 3.6 (3.5-5.0) g/dL Disposition Clinical Impression: Jaw pain, Nausea, Transaminitis Disposition: HOME SELF-CARE Condition: Good Instructions: Normal Exam (ED) Referrals: Mahnaz Phan MD [Primary Care Provider] - 1-2 days Time of Disposition: 10:00
[2016-05-22 10:02] VITALS: BP 126/68; PULSE 82; RESP 18
== END 2016-05-22 10:10 | disposition home or self-care (01) ==
LOC: EC 07:00
DX: R68.84 Jaw pain (principal); R11.0 Nausea; R74.0 Nonspecific elevation of levels of transaminase and lactic acid dehydrogenase [LDH]; Z88.8 Allergy status to other drugs, medicaments and biological substances; Z91.048 Other nonmedicinal substance allergy status; Z91.09 Other allergy status, other than to drugs and biological substances
CPT/HCPCS: 99283; 96374; 96361 ×2; 36415; 80053; 85025; J2405

== ENCOUNTER → 2018-04-30 | Outpatient (CLI) | payer MEDICARE, OTHER ==
[2018-04-30 17:21] LABS: LDL Cholesterol,Calculated 111.6 mg/dL (0.0-131.0); VLDL Calculation 39.4 mg/dL (5.00-40.00)
[2018-04-30 17:29] LABS: T4, Free (Free Thyroxine) 1.2 ng/dL (0.80-1.80)
[2018-04-30 18:59] LABS: Hemoglobin A1C 5.2 % (4.0-6.0)
== END ==
LOC: LABWHC1 09:13
PROVIDERS: ATTEND Psychiatry & Neurology Psychiatry
DX: Z51.81 Encounter for therapeutic drug level monitoring (principal); Z79.899 Other long term (current) drug therapy
CPT/HCPCS: 36415; 80061; 82947; 83036; 84439; 84443

== ENCOUNTER 2020-03-12 14:45 | Emergency (ER) | payer MEDICARE, OTHER ==
--- NOTE | 2020-03-12 15:13 | ED ---
Psych HPI - General Chief Complaint: Psychiatric Symptoms Stated Complaint: mental health Time Seen by Provider: 03/12/20 14:55 Source: patient Mode of arrival: ambulatory - History of Present Illness Initial Comments: 34-year-old male presents emergency Department course psychiatric evaluation. Patient is not taking his invigorated injection because he states that it "messes" with him. Patient reports he has a quarter that mandates an to take the medication. He denies any homicidal, suicidal thoughts or ideations. No further complaints by patient. - Related Data Home Medications Medication Instructions Recorded Confirmed clonazePAM [KlonoPIN] 0.5 mg PO BID PRN 05/22/16 05/22/16 clonazePAM [KlonoPIN] 2 mg PO HS PRN 05/22/16 05/22/16 Previous Rx's Medication Instructions Recorded Paliperidone IM [Invega Sustenna] 234 mg IM QMONTH #1 syr 05/10/16 Allergies Allergy/AdvReac Type Severity Reaction Status Date / Time soy Allergy Unknown Verified 05/22/16 08:49 divalproex sodium AdvReac Confusion Verified 05/22/16 08:49 [From Depakote] lithium AdvReac Unknown Verified 05/22/16 08:49 Review of Systems ROS Statement: Those systems with pertinent positive or pertinent negative responses have been documented in the HPI. ROS Other: All systems not noted in ROS Statement are negative. Past Medical History Past Medical History: No Reported History History of Any Multi-Drug Resistant Organisms: None Reported Past Surgical History: No Surgical Hx Reported Past Anesthesia/Blood Transfusion Reactions: No Reported Reaction Past Psychological History: Anxiety, Bipolar, Depression, Schizoaffective Disorder Past Alcohol Use History: None Reported Past Drug Use History: None Reported General Exam Limitations: no limitations General appearance: alert, in no apparent distress Head exam: Present: atraumatic, normocephalic, normal inspection Eye exam: Present: normal appearance, PERRL, EOMI Pupils: Present: normal accommodation ENT exam: Present: normal exam Neck exam: Present: normal inspection, full ROM. Absent: tenderness Respiratory exam: Present: normal lung sounds bilaterally Cardiovascular Exam: Present: regular rate, normal rhythm, normal heart sounds Extremities exam: Present: normal inspection, full ROM Back exam: Present: normal inspection, full ROM Neurological exam: Present: alert, oriented X3, normal gait Psychiatric exam: Present: normal affect, normal mood. Absent: depressed, agitated, anxious, flat affect Skin exam: Present: warm, dry, intact, normal color Medical Decision Making - Medical Decision Making 34-year-old male presenting to the emergency department for psychiatric evaluation. Patient has no homicidal, suicidal thoughts or ideations. Patient does not taken his inVega injection and is here by a court order. Patient will be given the injection and discharged home. ETS evaluate a patient and they will discharge. Case discussed with physician. Disposition Clinical Impression: Adjustment reaction of adult life Disposition: HOME SELF-CARE Condition: Stable Instructions (If sedation given, give patient instructions): Paliperidone (By mouth) Additional Instructions: Follow-up with your psychiatrist. Is patient prescribed a controlled substance at d/c from ED?: No Referrals: [facility] [Primary Care Provider] - 1-2 days Time of Disposition: 15:12
[2020-03-12] MEDS ORDERED: PALIPERIDONE IM 156 MG/ML SYG IM ONE (15:15)
[2020-03-12 15:43] VITALS: BP 132/80; PULSE 72; RESP 20
== END 2020-03-12 15:43 | disposition home or self-care (01) ==
LOC: EC 14:45
DX: F43.20 Adjustment disorder, unspecified (principal); F41.9 Anxiety disorder, unspecified; F31.9 Bipolar disorder, unspecified; Z79.899 Other long term (current) drug therapy; Z88.8 Allergy status to other drugs, medicaments and biological substances; Z91.018 Allergy to other foods
CPT/HCPCS: 99283 ×2; 96372 ×2; 82075; J2426

== ENCOUNTER 2020-12-02 20:10 | Inpatient (IN) | payer MEDICARE, MEDICAID ==
[2020-12-02] MEDS ORDERED: HALOPERIDOL LACTATE 5 MG/ML 1 ML VIAL IM STA (20:21)
[2020-12-02] MEDS ORDERED: LORazepam 2 MG/ML INJ IM STA (20:22)
[2020-12-02] MEDS ORDERED: diphenhydrAMINE 50 MG/ML 1 ML VIAL IM STA (20:22)
--- NOTE | 2020-12-02 20:24 | ED ---
Psych HPI <Kenny Kent - Last Filed: 12/03/20 00:48> - General Source: patient, police, EMS, RN notes reviewed, old records reviewed Mode of arrival: EMS <Iron Garcia - Last Filed: 12/03/20 07:15> - General Chief Complaint: Psychiatric Symptoms Stated Complaint: Mental Health Time Seen by Provider: 12/02/20 20:11 - History of Present Illness Initial Comments: 35-year-old male with a history of bipolar mixed disorder with psychosis in the past who is brought in by police under petition patient has been demonstrating the second behavior destroying [employer] electronics in his house he states that everything is coming from [place] and coming after him. He is demonstrated flight of ideas. Demonstrating verbal hostility to caregivers. He purely is been off his medications since March of this year. Per reports his mother it is coming from [place] and did call 911 for help because of his activity. (Iron Subramanian) - Related Data Home Medications Medication Instructions Recorded Confirmed Paliperidone IM [Invega Sustenna] 234 mg IM DIRECTED 12/02/20 12/02/20 Allergies Allergy/AdvReac Type Severity Reaction Status Date / Time soy Allergy Unknown Verified 05/22/16 08:49 divalproex sodium AdvReac Confusion Verified 05/22/16 08:49 [From Depakote] lithium AdvReac Unknown Verified 05/22/16 08:49 Review of Systems ROS Other: All systems not noted in ROS Statement are negative. <Kenny Kent - Last Filed: 12/03/20 00:48> ROS Other: All systems not noted in ROS Statement are negative. Limitations: ROS unobtainable due to patients medical condition <Iron Garcia - Last Filed: 12/03/20 07:15> ROS Statement: Those systems with pertinent positive or pertinent negative responses have been documented in the HPI. Past Medical History Past Medical History: No Reported History History of Any Multi-Drug Resistant Organisms: None Reported Past Surgical History: No Surgical Hx Reported Past Anesthesia/Blood Transfusion Reactions: No Reported Reaction Past Psychological History: Anxiety, Bipolar, Depression, Schizoaffective Disorder Past Alcohol Use History: None Reported Past Drug Use History: None Reported <Iron Garcia - Last Filed: 12/03/20 07:15> General Exam Limitations: altered mental status General appearance: alert, anxious Head exam: Present: atraumatic, normocephalic, normal inspection Eye exam: Present: normal appearance, PERRL, EOMI. Absent: scleral icterus, conjunctival injection, periorbital swelling ENT exam: Present: normal exam, mucous membranes moist Neck exam: Present: normal inspection. Absent: tenderness, meningismus, lymphadenopathy Respiratory exam: Present: normal lung sounds bilaterally. Absent: respiratory distress, wheezes, rales, rhonchi, stridor Cardiovascular Exam: Present: normal rhythm, tachycardia, normal heart sounds. Absent: systolic murmur, diastolic murmur, rubs, gallop, clicks GI/Abdominal exam: Present: soft, normal bowel sounds. Absent: distended, tenderness, guarding, rebound, rigid Extremities exam: Present: normal inspection, full ROM, normal capillary refill. Absent: tenderness, pedal edema, joint swelling, calf tenderness Back exam: Present: normal inspection Neurological exam: Present: alert, oriented X3, CN II-XII intact Psychiatric exam: Present: agitated, anxious, manic Skin exam: Present: warm, dry, intact, normal color. Absent: rash <Iron Garcia - Last Filed: 12/03/20 07:15> - General Exam Comments Initial Comments: This is a well-developed well-nourished awake alert male demonstrates flight of ideas and hyperverbal features (Iron Garcia) Course <Iron Garcia - Last Filed: 12/03/20 07:15> Vital Signs 12/02/20 20:20 Temperature 97.7 F Pulse Rate 122 H Respiratory 16 Rate Blood Pressure 155/106 O2 Sat by Pulse 98 Oximetry - Reevaluation(s) Reevaluation #1: 12/02/20 20:40 The patient's care will be endorsed to Dr. Kent at our shift change (Iron Garcia) Procedures - Restraint - Face to Face Restraint Occurrence 1 Patient's Immediate Situation: Endangers others' safety Patient's Reaction to the Intervention: Uncooperative, Bizarre, Suspicious, Aggressive Patient's Medical & Behavioral Condition: Agitated, Paranoid, Bizarre behavior Need to Continue or Terminate Restraint or Seclusion: Continue <Kenny Kent - Last Filed: 12/03/20 00:48> Medical Decision Making <Iron Garcia - Last Filed: 12/03/20 07:15> - Medical Decision Making The patient was ultimately admitted for inpatient evaluation and treatment (Iron Garcia) - Lab Data Lab Results 12/03/20 Range/Units 00:33 Coronavirus (PCR) Not Detected (Not Detectd) Disposition <Kenny Kent - Last Filed: 12/03/20 00:48> <Iron Garcia - Last Filed: 12/03/20 07:15> Clinical Impression: Acute psychosis, Bipolar I disorder, most recent episode manic, severe with psychotic features Disposition: TRANSFER TO PSYCH HOSP/UNIT Condition: Fair
[2020-12-03] MEDS ORDERED: MAG HYDROX/AL HYDROX/SIMETH 30 ML CUP PO PRN (01:25)
[2020-12-03] MEDS ORDERED: ACETAMINOPHEN TAB 325 MG TAB PO PRN (01:25)
[2020-12-03] MEDS ORDERED: MAGNESIUM HYDROXIDE 2,400 MG/10 ML CUP PO PRN (01:25)
[2020-12-03] MEDS ORDERED: LORazepam 2 MG/ML INJ IM PRN (01:32)
[2020-12-03] MEDS ORDERED: LORazepam 1 MG TAB PO PRN (01:32)
[2020-12-03] MEDS ORDERED: HALOPERIDOL LACTATE 5 MG/ML 1 ML VIAL IM PRN (01:33)
[2020-12-03] MEDS ORDERED: haloperidoL 5 MG TAB PO PRN (01:33)
[2020-12-03] MEDS ORDERED: PALIPERIDONE 3 MG TAB.ER.24 PO SCH (09:00)
--- NOTE | 2020-12-03 11:22 | P.HP ---
Psychiatric H&P - . H&P Date: 12/03/20 History & Physical: Allergies Allergy/AdvReac Type Severity Reaction Status Date / Time soy Allergy Unknown Verified 05/22/16 08:49 divalproex sodium AdvReac Confusion Verified 05/22/16 08:49 From Depakote lithium AdvReac Unknown Verified 05/22/16 08:49 Vital Signs Temp 98.1 F 12/03/20 02:03 Pulse 122 H 12/03/20 02:03 Resp 18 12/03/20 02:03 BP 123/79 12/03/20 02:03 Pulse Ox 98 12/02/20 20:20 Intake & Output 12/02/20 12/03/20 12/03/20 18:59 06:59 18:59 Weight 113.398 kg Laboratory Last Values Coronavirus (PCR) Not Detected (Not Detectd) 12/03/20 00:33 12/03/20 11:15 IDENTIFYING DATA: Patient is a 35-year-old male who currently lives alone in an apartment and is has 2 kids and is currently unemployed. HPI: Patient presented to the hospital on [place] by a [place] police lieutenant who states that patient was speaking about his intestines changing and feeling snakes spurs coming out of his body. According to petition patient was also speaking of electrode device is affecting his spiritual being and also talking about preachers in [place] it took over his mind. Patients mother from [place] called 911 to have patient brought in the hospital for evaluation. Patient apparently was agitated in the ER and was admitted involuntarily to the mental health unit. Patient was seen today lying in bed and appeared to be disheveled in appearance had a long sexton. He was soft spoken however smoke but his mom calling the supervisor pipeline because he told her to. He states that he has been hearing voices of a " man" and spoke significantly about "evil technology" that has been affecting him in various ways. He states that he feels he is not being heard and that he is not hallucinating. He states that he is feeling paranoid and other people. He also spoke about social media and "breaking off ties". He also spoke about a "I body". He had loose associations and rambles at times. He was fairly delusional and had poor reality testing. He claims that his sleep has been "on and off" and appetite as been fair. He appeared to be fairly distress related to his delusions. Patient denies any suicidal or homicidal ideations intent or plan. At this time patient denies any visual hallucinations. Patient admits to using no recreational drugs or cigarettes. She did not provide a UDS. PAST PSYCHIATRIC HISTORY: Patient states that he has a history of schizoaffective disorder. He claims that he has been tried on various antipsychotics in the past however only remembers paliperidone. He states that he has been hospitalized at various places however can't remember where. Patient denies any psychiatric outpatient follow-up. Patient denies any history of suicide attempts in the past. PMH:denies ALLERGIES: as per EMR CHEMICAL DEPENDENCY HISTORY: as per HPI FAMILY PSYCHIATRIC/SUBSTANCE USE HISTORY: denies SOCIAL HISTORY: Patient was born and raised in [place] and claims that his father was a preacher so they moved to different states including [place] and then finally settled with his in [place]. He states that he has never been in skilled nursing or snf. He claims that he has some college. 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 He states that he currently lives alone in apartment is has 2 kids. MENTAL STATUS EXAM: General Appearance: Patient appears to be a tall, overweight, stated age is alert, directable, and attempts to cooperate. Patient appears to have poor hygiene and grooming. Long sexton and long hair. Disheveled appearance. Behavior: Patient is seated without any agitated behavior. Peers to be in distress at times Speech: Patient's speech is fluent and nonpressured. Soft spoken Mood/Affect: Patient reports their mood is "not good", affect is congruent and constricted. Suicidality/Homicidality: Patient denies having any homicidal ideation intent or plan. Denies any suicidal ideations intent or plan Perceptions: Patient denies any visual hallucinations and speaks of hearing and voice which is talking to him. Though content/process: Delusional, speaking of "evil technology". Illogical at times. Memory and concentration: AOX3, grossly intact for the purposes of this session. Can spell "WORLD" backwards Judgment and insight: poor STRENGTHS/WEAKNESSES: strength is that patient is resilient. Weakness is that patient has poor judgment and is impulsive INTELLECT: average IMPRESSIONS: Schizoaffective disorder unspecified PLAN: -Patient is admitted under involuntary status to MHU for stabilization of psychiatric symptoms and safety. Patient has not signed adult voluntary form and medication consent and is placed in patient's chart. A second certification was completed and along with petition will be filed for court. -Medications : Will start patient on Prolixin 2.5 mg twice a day by mouth for psychosis. We'll also start trazodone 50 mg daily at bedtime for insomnia/mood. -Ativan and Haldol PRN for agitation/aggression -Patient was informed of the risks, benefits and side effects of the medication and patient verbally consented to taking the medications. Patient signed med consent form and was placed in chart. -Internal Medicine consult to perform medical evaluation and physical. -NRT - not needed as patient does not smoke -SW on board for discharge planning. Encourage patient to participate in groups to work on coping skills. Will await deferral and court date. 12/03/20 11:18
[2020-12-03] MEDS: traZODone HCL 50 MG TAB PO SCH (21:30)
--- NOTE | 2020-12-04 05:35 | P.MDCNMH ---
History of Present Illness H&P Date: 12/03/20 Chief Complaint: medical evaluation 35 year old male with bipolar disorder patient comes in for evaluation , patient mother called 911 due to behavioral issues and acute psychosis . he currently denies any auditory or visual hallucinations patient currently denies any chest pain , trouble breathing, cough, fever, chills, nausea , vomiting, abd pain , urinary or bowel changes. he denies smoking, drugs or alcohol abuse. Review of Systems Pertinent positives as noted in HPI. All other systems were reviewed and are negative Past Medical History Past Medical History: No Reported History History of Any Multi-Drug Resistant Organisms: None Reported Past Surgical History: No Surgical Hx Reported Past Anesthesia/Blood Transfusion Reactions: No Reported Reaction Past Psychological History: Anxiety, Bipolar, Depression, Schizoaffective Disorder Past Alcohol Use History: None Reported Past Drug Use History: None Reported - Past Family History family Family Medical History: No Reported History Medications and Allergies Home Medications Medication Instructions Recorded Confirmed Type Paliperidone IM [Invega Sustenna] 234 mg IM DIRECTED 12/02/20 12/02/20 History Allergies Allergy/AdvReac Type Severity Reaction Status Date / Time soy Allergy Unknown Verified 12/04/20 03:10 divalproex sodium AdvReac Confusion Verified 12/04/20 03:10 [From Depakote] lithium AdvReac Unknown Verified 12/04/20 03:10 Physical Exam Vitals: Vital Signs Temp Pulse Resp BP 12/03/20 02:03 98.1 F 122 H 18 123/79 Constitutional: No acute distress, conversant, pleasant Eyes: Anicteric sclerae, moist conjunctiva, Pupils equal round reactive to light ENMT: NC/AT Oropharynx clear, no erythema, or exudates Neck: Supple, FROM, no masses, or JVD No carotid bruits No thyromegaly Lungs: Clear to auscultation Clear to percussion Normal respiratory effort, no accessory muscle use Cardiovascular: Heart regular in rate and rhythm, No murmurs, gallops, or rubs No peripheral edema Abdominal: Soft Nontender, no guarding, rebound or rigidity Abdomen moving with respiration Normoactive bowel sounds No hepatomegaly, No splenomegaly No palpable mass No abdominal wall hernia noted Skin: Normal temperature, tone, texture, turgor No induration No subcutaneous nodules No rash, lesions No ulcers Extremities: No digital cyanosis No clubbing Pedal pulses intact and symmetrical Radial pulses intact and symmetrical No calf tenderness Psychiatric: Alert and oriented to person, place and time Neuro Muscles Strength 5/5 in all 4 extremities Sensation to light touch grossly present throughout Cranial nerves II-XII grossly intact No focal sensory deficits Lymphatics: no palpable cervical or supraclavicular , or inguinal lymph nodes Cranial Nerve Examination - Cranial Nerves Cranial Nerve II- Optic: Intact Cranial Nerve III- Oculomotor: Intact Cranial Nerve IV- Trochlear: Intact Cranial Nerve V- Trigeminal: Intact Cranial Nerve - Abducens: Intact Cranial Nerve VII- Facial: Intact Cranial Nerve VIII- Auditory: Intact Cranial Nerve IX- Glossopharyngeal: Intact Cranial Nerve X- Vagus: Intact Cranial Nerve XI- Accessory: Intact Cranial Nerve XII- Hypoglossal: Intact Assessment and Plan Assessment: acute psychosis management per psych follow up labs Thank you for allowing us to participate in the care of this patient. We will follow peripherally. Do not hesitate to contact us with questions. Someone can be reached from the [facility] hospitalist group at all hours of the day at [phone].
--- NOTE | 2020-12-04 10:35 | P.PN ---
Progress Note - Text Progress Note Date: 12/04/20 Interval History: Patient was seen lying in his bed this morning and was directable and agreeable to speak with law writer in the office. Patient continues to have poor hygiene and grooming. He states that he has not showered and made several excuses as to not want to shower today. He claims he has not been going to groups. He claims that he did not take his medications this morning or yesterday as "this is the [place] and people have rights and freedoms". Patient asked several questions about the court process and law writer answered them. He claims that his mood is "fine" and was fairly constricted today in his affect. He believes that he does not need any medications at this time. He is to have poor insight and judgment. At this time patient denies any suicidal or homical ideations, intent or plan. Patient denies any visual hallucinations and denies any paranoia or delusions. Patient denies any side effects from the medications and has been compliant with meds. States that he is still hearing voices however was vague about what the voices are telling him. Mental Status Exam: General Appearance: Patient appears to be a tall, overweight, stated age is alert, directable, and attempts to cooperate. Patient appears to have poor hygiene and grooming. Long sexton and long hair. Disheveled appearance. Behavior: Patient is seated without any agitated behavior. Speech: Patient's speech is fluent and nonpressured. Soft spoken Mood/Affect: Patient reports their mood is "not good", affect is congruent and constricted. Suicidality/Homicidality: Patient denies having any homicidal ideation intent or plan. Denies any suicidal ideations intent or plan Perceptions: Patient denies any visual hallucinations and speaks of hearing and voice which is talking to him. Though content/process: Delusional, speaking of "evil technology". Illogical at times. Memory and concentration: AOX3, grossly intact for the purposes of this session. Judgment and insight: poor Assessment Schizoaffective disorder unspecified Plan: -Patient continues to meet criteria for inpatient psychiatric admission for symptom stabilization and safety. Patient has not signed adult voluntary form and medication consent and was placed in patient's chart. -Medications: Continue his Prolixin 2.5 mg twice a day for psychosis. Trazodone 50 mg daily at bedtime for insomnia/mood. Patient has not been taking his medications. -When necessary Ativan and Haldol for agitation/aggression. -NRT -not needed as patient does not smoke -SW on board for discharge planning. Encouraged the patient to participate in milieu. Currently awaiting deferral with privacy attorney and court date.
[2020-12-04] MEDS: traZODone HCL 50 MG TAB PO SCH (20:43)
--- NOTE | 2020-12-05 11:30 | P.PN ---
Progress Note - Text Progress Note Date: 12/05/20 Interval History: Patient was seen lying in his bed this morning 's morning. He refused to get up out of his bed and speak with aligner typewriter in the office. He appears to have a soft tone of voice. He continues to have a disheveled appearance. He states that he is doing "okay" however was vague about his night. He states that it took him a while to go to sleep. He continues to be refusing medications and states that "I've been taking medications were whole life and to haven't helped me". He continues to describe a distressing voice that has been talking to him. He also spoke about a "spiritual realm" and was religiously preoccupied. He claims his mood is "fine". He believes that he does not need any medications at this time. He is to have poor insight and judgment. At this time patient denies any suicidal or homical ideations, intent or plan. Patient denies any visual hallucinations and denies any paranoia or delusions. Patient denies any side effects from the medications and has been compliant with meds. Mental Status Exam: General Appearance: Patient appears to be a tall, overweight, stated age is alert, directable, and attempts to cooperate. Patient appears to have poor hygiene and grooming. Long sexton and long hair. Disheveled appearance. Behavior: Patient is seated without any agitated behavior. Speech: Patient's speech is fluent and nonpressured. Soft spoken Mood/Affect: Patient reports their mood is "fine", affect is incongruent and constricted. Suicidality/Homicidality: Patient denies having any homicidal ideation intent or plan. Denies any suicidal ideations intent or plan Perceptions: Patient denies any visual hallucinations and speaks of hearing and voice which is talking to him. Though content/process: Delusional, speaking of "evil technology" and a "spiritual realm". Illogical at times. Memory and concentration: AOX3, grossly intact for the purposes of this session. Judgment and insight: poor Assessment Schizoaffective disorder unspecified Plan: -Patient continues to meet criteria for inpatient psychiatric admission for symptom stabilization and safety. Patient has not signed adult voluntary form and medication consent and was placed in patient's chart. -Medications: Continue his Prolixin 2.5 mg twice a day for psychosis. Trazodone 50 mg daily at bedtime for insomnia/mood. Patient has not been taking his medications. -When necessary Ativan and Haldol for agitation/aggression. -NRT -not needed as patient does not smoke -SW on board for discharge planning. Encouraged the patient to participate in milieu. Currently awaiting deferral with associate attorney and court date.
[2020-12-05] MEDS: traZODone HCL 50 MG TAB PO SCH (21:09)
--- NOTE | 2020-12-06 10:01 | P.PN ---
Progress Note - Text Progress Note Date: 12/06/20 Interval History: Patient was seen getting out of his room this morning. He continues to appear to be discheveled in appearance. She was agreeable to designer/writer in the office today. He states that he showered over 2 days ago last. He claims that today he feels "okay" however was continuing to endorse several delusions and was again religiously preoccupied. He continues to refuse medications and states that he does not need medications at this time. He states that he does not want to sign a deferral with his deputy prosecuting attorney and will wait for the court hearing on Saturday. He appears to have a soft tone of voice. States that he does not need to go to any groups at this time and has not been participating. He claims his mood is "fine". He is to have poor insight and judgment. At this time patient denies any suicidal or homical ideations, intent or plan. Patient denies any visual hallucinations and denies any paranoia or delusions. Patient denies any side effects from the medications and has been compliant with meds. Mental Status Exam: General Appearance: Patient appears to be a tall, overweight, stated age is alert, directable, and attempts to cooperate. Patient appears to have poor hygiene and grooming. Long sexton and long hair. Disheveled appearance. Behavior: Patient is seated without any agitated behavior. Speech: Patient's speech is fluent and nonpressured. Soft spoken Mood/Affect: Patient reports their mood is "ok", affect is incongruent and constricted. Suicidality/Homicidality: Patient denies having any homicidal ideation intent or plan. Denies any suicidal ideations intent or plan Perceptions: Patient denies any visual hallucinations and speaks of hearing and voice which is talking to him. Though content/process: Delusional, speaking of "evil technology" and a "spiritual realm". Illogical at times. Memory and concentration: AOX3, grossly intact for the purposes of this session. Judgment and insight: poor Assessment Schizoaffective disorder unspecified Plan: -Patient continues to meet criteria for inpatient psychiatric admission for symptom stabilization and safety. Patient has not signed adult voluntary form and medication consent and was placed in patient's chart. -Medications: Continue his Prolixin 2.5 mg twice a day for psychosis. Trazodone 50 mg daily at bedtime for insomnia/mood. Patient has not been taking his medications. -When necessary Ativan and Haldol for agitation/aggression. -NRT -not needed as patient does not smoke -SW on board for discharge planning. Encouraged the patient to participate in milieu. Patient's court date is 12/14/2020 at 11 AM.
[2020-12-06] MEDS: traZODone HCL 50 MG TAB PO SCH (21:32)
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
[2020-12-07] MEDS: traZODone HCL 50 MG TAB PO SCH (20:31)
--- NOTE | 2020-12-08 11:56 | P.PN ---
Progress Note - Text Progress Note Date: 12/08/20 Interval History: Patient was seen lying in his bed this morning and agreed to speak to senior copywriter. He continues to appear to be discheveled in appearance. He claims that today he feels "better" today. He claims that most of his thoughts towards "evil technology" have improved however patient continues to ramble about "evil technology". He was continuing to endorse several delusions and was again religiously preoccupied. He continues to be tangential/circumstantial and delusional. He continues to refuse medications and states that he does not need medications at this time. He asked about the court process and him wanting to speak to the harbor master today. States that he does not need to go to any groups at this time and has not been participating. He is to have poor insight and judgment. At this time patient denies any suicidal or homical ideations, intent or plan. Patient denies any visual hallucinations and denies any paranoia or delusions. Patient denies any side effects from the medications and has been compliant with meds. He states that he slept fairly last name. Mental Status Exam: General Appearance: Patient appears to be a tall, overweight, stated age is alert, directable, and attempts to cooperate. Patient appears to have poor hygiene and grooming. Long sexton and long hair. Disheveled appearance. Behavior: Patient is seated without any agitated behavior. Speech: Patient's speech is fluent and nonpressured. Soft spoken Mood/Affect: Patient reports their mood is "better", affect is incongruent and constricted. Suicidality/Homicidality: Patient denies having any homicidal ideation intent or plan. Denies any suicidal ideations intent or plan Perceptions: Patient denies any visual hallucinations and speaks of hearing and voice which is talking to him. Though content/process: Delusional, speaking of "evil technology" and a "spiritual realm". Illogical at times. Memory and concentration: AOX3, grossly intact for the purposes of this session. Judgment and insight: poor Assessment Schizoaffective disorder unspecified Plan: -Patient continues to meet criteria for inpatient psychiatric admission for symptom stabilization and safety. Patient has not signed adult voluntary form and medication consent and was placed in patient's chart. -Medications: Continue his Prolixin 2.5 mg twice a day for psychosis. Trazodone 50 mg daily at bedtime for insomnia/mood. Patient has not been taking his medications. -When necessary Ativan and Haldol for agitation/aggression. -NRT -not needed as patient does not smoke -SW on board for discharge planning. Encouraged the patient to participate in milieu. Patient's court date is 12/14/2020 at 11 AM, deferral is set for 12/08 with his workers compensation attorney.
[2020-12-08] MEDS: traZODone HCL 50 MG TAB PO SCH (20:07)
--- NOTE | 2020-12-09 09:22 | P.PN ---
Progress Note - Text Progress Note Date: 12/09/20 Interval History: Patient was seen lying in his bed this morning and agreed to speak to medical writer. He continues to appear to be discheveled in appearance. Seems that today he is feeling upset because he is trying to "please everyone". He spoke about not ordering poon or sausage for breakfast however "they still keep on sending it to me" and states that he is doing this to "please all the [employer] people". He continues to make bizarre statements at times. He claims that most of his thoughts towards "evil technology" have improved. He was continuing to endorse several delusions and was again religiously preoccupied. He continues to be tangential/circumstantial and delusional. He continues to refuse medications and states that he does not need medications at this time. States that he does not need to go to any groups at this time and has not been participating. He is to have poor insight and judgment. At this time patient denies any suicidal or homical ideations, intent or plan. Patient denies any visual hallucinations and denies any paranoia or delusions. He states that he slept fairly last name. Mental Status Exam: General Appearance: Patient appears to be a tall, overweight, stated age is alert, directable, and attempts to cooperate. Patient appears to have poor hygiene and grooming. Long sexton and long hair. Disheveled appearance. Behavior: Patient is seated without any agitated behavior. Speech: Patient's speech is fluent and nonpressured. Soft spoken Mood/Affect: Patient reports their mood is "same", affect is incongruent and constricted. Suicidality/Homicidality: Patient denies having any homicidal ideation intent or plan. Denies any suicidal ideations intent or plan Perceptions: Patient denies any visual hallucinations and speaks of hearing and voice which is talking to him. Though content/process: Delusional, speaking of "evil technology" and making other bizarre statements. Illogical at times. Memory and concentration: AOX3, grossly intact for the purposes of this session. Judgment and insight: poor Assessment Schizoaffective disorder unspecified Plan: -Patient continues to meet criteria for inpatient psychiatric admission for symptom stabilization and safety. Patient has not signed adult voluntary form and medication consent and was placed in patient's chart. -Medications: Continue his Prolixin 2.5 mg twice a day for psychosis. Trazodone 50 mg daily at bedtime for insomnia/mood. Patient has not been taking his medications. -When necessary Ativan and Haldol for agitation/aggression. -NRT -not needed as patient does not smoke -SW on board for discharge planning. Encouraged the patient to participate in milieu. Patient's court date is 12/14/2020 at 11 AM
[2020-12-09] MEDS: traZODone HCL 50 MG TAB PO SCH (21:51)
--- NOTE | 2020-12-10 15:29 | PN ---
PROGRESS NOTE DATE OF SERVICE: 12/10/2020. CHIEF COMPLAINT: The patient was having auditory hallucinations and delusional thinking. His thoughts were quite disorganized. INTERVAL HISTORY: Patient has been doing fair. He continues to be quite disordered in his thinking. He comes out on the unit. He attended one group yesterday at 9:30. It is noteworthy that he seemed to be confrontational with the weatherization crew leader, questioning what help he was getting from staff. In the progress noted it was indicated that he later apologized for how he had approached the worker. He did not attend other groups yesterday. He said he slept fair last night. Today he has been up. He has been out on the unit. Overall he continues the same. He does have a basic understanding as to the petition process and that he has a court hearing coming up. It is noteworthy that he said that in the past he had been petitioned for hospitalization, and at that time he signed a deferral. He said the reason he did not sign a deferral this time is because he felt that [facility] was just forcing medications on him. He said he had stopped going to [facility] as of February or March this year and had stopped his [employer] Sust[employer] which he had been on. It is noteworthy that through most of the interview he made various comments about how my eye contact was trying to control him. He was making references to electronics and how they are affecting his mind. He has been declining to take any medications. He suggested that he had some trouble in the past with medications, though he was not able to provide much for specifics. He made references to how medications "were destroying my tissues." He could not give any detail to that. He has been generally cooperative in terms of function on the unit. MENTAL STATUS EXAM: Patient was fairly restless. He gave fair eye contact. At times he would have a staring gaze and then at other times he would look off. As noted above, he made references to believing that my looking at him was somehow controlling him in one way or another. Most of what he said was disorganized and disconnected to the subject at hand. He made references to yarsanism and other spiritual issues that were the basis for his not choosing to take medications. His affect was intense, his mood dysphoric. He seemed significantly distressed. He was showing significant delusional and disordered thinking. He made no indications of thoughts of harm. He was oriented to circumstances and surroundings. ASSESSMENT: I will continue the current diagnosis and treatment plan. We will continue to make efforts to engage the patient in individual and group therapeutic activities. I strongly encouraged the patient to consider taking some oral antipsychotic medications. I reviewed issues relating to medications. I also talked about expectations relating to his upcoming court hearing. I did discuss that there is a reasonable likelihood of there being initiation of a long-acting injectable. The patient did make the statement at the end that he would review medication possibilities today and look at the option again tomorrow though declined to take any medications today. We will focus on stabilization and discharge planning. MMSOULEYMANE / PURNIMA: [id number] /
[2020-12-10] MEDS: traZODone HCL 50 MG TAB PO SCH (21:17)
--- NOTE | 2020-12-11 16:53 | PN ---
DATE OF SERVICE: 12/11/2020 PROGRESS NOTE CHIEF COMPLAINT: The patient was having auditory hallucinations and delusional thinking. His thoughts were quite disorganized. INTERVAL HISTORY: Patient has been doing fair. He had a quiet day yesterday. He comes out on the unit. He does wonder about. He interacts a little with others, though mostly he seems to keep to himself. He pays attention to things going on around him. He chose yesterday not to attend groups as noted in my progress note from yesterday. I had strongly encouraged him to consider starting medications though he declined that as well. He said he slept fairly well last night, today he has been up. Overall he has been doing about the same. He wanders about. He did not attend groups today so far. When I talked to him about medication issues his only response is that he will talk to his commercial real estate attorney and will be addressing issues through the court. He declined consideration of medications. MENTAL STATUS EXAM: Patient had some restlessness. He gave fair eye contact. He presented in an intense manner. His mood was reserved. He seems somewhat distressed. He continues to make vague references that clearly suggest delusional thinking. He voiced no thoughts of harm. He was oriented to his circumstances and surroundings. ASSESSMENT: I will continue the current diagnosis and treatment plan. I will continue to encourage the patient towards initiating an antipsychotic medication. He is in the process of completing the court issues relating to his petition process. We will continue to focus on stabilization and discharge planning. GARETT / PURNIMA: [id number] / MTDD
[2020-12-11] MEDS: traZODone HCL 50 MG TAB PO SCH (20:21)
[2020-12-12] MEDS: traZODone HCL 50 MG TAB PO SCH (20:33)
[2020-12-12] MEDS: haloperidoL 5 MG TAB PO SCH (20:34)
[2020-12-13] MEDS ORDERED: traZODone HCL 50 MG TAB PO PRN (12:48)
[2020-12-13] MEDS ORDERED: LORazepam 1 MG TAB PO PRN (12:52)
[2020-12-13] MEDS: haloperidoL 1 MG TAB PO SCH (13:49)
[2020-12-13] MEDS ORDERED: haloperidoL 1 MG TAB PO ONE (16:00)
--- NOTE | 2020-12-13 16:16 | PN ---
PROGRESS NOTE DATE OF SERVICE: 12/12/2020 CHIEF COMPLAINT: The patient was having auditory hallucinations and delusional thinking. His thoughts are quite disorganized. INTERVAL HISTORY: Patient has been doing fair. He had a quiet day yesterday. He was out on the unit some, generally keeps to himself. He has been very focused on the idea that he needs to sort through the legal issues relating to his petition. He has been reluctant to consider medications. He anticipates that he will be meeting with an claim attorney in the next day or two and that will help him make decisions. Last evening he apparently got in quite a distressed state and requested medications. He received Haldol 5 mg and Ativan 2 mg IM. He said it made him sleepy, though he also felt that it helped clear some of his thinking. He said that he would be comfortable taking some medications though he does not want to have the sedation that he experienced yesterday. He was willing to be started on Haldol. He seemed to indicate that he would be most comfortable deferring in regard to the court process. He did have an admission several years ago where he deferred on a petition and was unhappy with his treatment that followed. He says he does not want to get into that situation. MENTAL STATUS EXAM: Patient was a restless. He gave fairly good eye contact. He did not answer questions directly, though he made various comments about mostly how medications affected him and that he needed some help to straighten out his thinking. His affect was intense. His mood dysphoric. He was significantly distressed. He continues to indicate thoughts of unreality. He voiced no thoughts of harm. He was oriented and alert. ASSESSMENT: I will continue the current diagnosis and treatment plan. I will start the patient on Haldol 10 mg at bedtime. I briefly discussed medications with the patient, though he was not very actively engaging in that conversation so I kept it limited. The patient did say he would take the Haldol and also understood stood that he had that p.r.n. medications available if he felt he needed more medications. We will focus on stabilization and discharge planning. GARETT / PURNIMA: [id number] / MTDD
[2020-12-13] MEDS: haloperidoL 5 MG TAB PO SCH (20:38)
[2020-12-14] MEDS: haloperidoL 1 MG TAB PO SCH ×2 (08:20→13:41)
[2020-12-14 13:12] VITALS: BMI 30.4
--- NOTE | 2020-12-14 14:19 | PN ---
PROGRESS NOTE DATE OF SERVICE: 12/14/2020. CHIEF COMPLAINT: The patient was having auditory hallucinations and delusional thinking. His thoughts are quite disorganized. INTERVAL HISTORY: Patient has been doing fair. He had a quiet day yesterday. Mostly he spent the day in his room. He will come out a little bit. He interacts appropriately with staff, though he does not engage much in conversation. He was reluctant to attend groups yesterday. He did not offer much explanation as to why. He said he slept fairly well last night. Today again he has been mostly in his room. Overall he seems to be doing a little bit better in his thought process. He says that he continues to have voices, though he says that the voices that were more toxic to him have pretty much dissipated and that the voices he is having now seem to be a little more generic. He continues to focus on some delusions about how people have plotted against him. He says that he had the expectation that police would help him, though he was not clear how. He does say that overall his thoughts are a little clearer and he feels like he is processing some of his issues in a better way. He does have some increased sedation. Whether or not it relates to his psychotropic medications is uncertain. The patient states that he understands his mother is flying in to connect with him. He was anticipating that while his mother is in the area she would be able to pick him up and bring him home from the hospital. He notes that he has his own apartment and is in a stable living situation. MENTAL STATUS EXAM: Patient came to the office. He sat with a little restlessness. He gave fair eye contact. He answered questions with brief responses. His thoughts were clear. He was somewhat spontaneous and interactive. His affect was blunted, his mood down. He had a worried manner. He was somewhat distressed. He continues to voice auditory hallucinations and has delusional thinking. He voiced no thoughts of harm. He is oriented to his current situation. ASSESSMENT: I will continue the current diagnosis and treatment plan. The patient appears to be making some progress overall. I discussed medication issues with the patient. He was willing to consider an increase in his Haldol. He asked appropriate questions about that. We discussed that some of the sedation that he feels may relate to some of the struggles he has had with the distress he has had in his thinking process. I suggested that with an increase in medicine he may see some clearing and in fact may see some improvement in his energy level and wakefulness. I will increase Haldol to 5 mg in the morning, 10 mg at bedtime. I will encourage the high school social studies teacher to set up a family meeting with the patient and his mother as part of discharge planning. We will focus on stabilization and discharge planning. MMSOULEYMANE / CHRISTIANN: [id number] /
--- NOTE | 2020-12-14 14:47 | PN ---
PROGRESS NOTE DATE OF SERVICE: 12/13/2020. CHIEF COMPLAINT: The patient was having auditory hallucinations and delusional thinking. His thoughts are quite disorganized. INTERVAL HISTORY: Patient has been doing fair. He had a quiet day yesterday. He comes out on the unit some. Mostly he keeps to himself. He spends a fair amount of time in his room. He does not interact much with others. He will engage to a limited extent with staff. He chose not to attend groups yesterday. He said he slept well last night and slept into the morning. Today he has been up. He continues to do about the same. It is noteworthy that his thoughts seem to be a little clearer in terms of the things that he discusses. He feels that some of the voices he has been experiencing are a little quieter. He still is focused on thoughts of how others have plotted against him in one way or another. He has been cooperative with care. He tolerates his psychotropic medications. MENTAL STATUS: Patient sat without restlessness. Eye contact was fair. Psychomotor activity was slowed. Speech was monotone. He answered questions with brief responses. He did not say much. His affect was flat, mood somewhat down and depressed. He seemed moderately distressed. He continues to show delusional thinking and reports auditory hallucinations. He voiced no thoughts of harm. He is oriented to circumstances and surroundings. ASSESSMENT: I will continue the current diagnosis and treatment plan. I will continue psychotropic medications the same. Patient will continue Haldol 10 mg twice a day. I will add 1 mg b.i.d. during the daytime. I reviewed medication issues briefly with the patient, though he was not top engaged in the conversation, so I kept it limited. We will focus on stabilization and discharge planning. MMODL / IJN: [id number] /
[2020-12-14] MEDS: haloperidoL 5 MG TAB PO SCH (20:41)
[2020-12-15] MEDS: haloperidoL 5 MG TAB PO SCH ×2 (08:04→21:16)
--- NOTE | 2020-12-15 09:56 | P.PN ---
Progress Note - Text Progress Note Date: 12/15/20 Interval History: Patient was seen lying in his bed this morning and agreed to speak to junior technical writer. He continues to appear to be discheveled in appearance. He appeared to be more pleasant with the junior technical writer today. He continues to be religiously preoccupied at times and was speaking about his medications and also about GOd. Appears to be mildly less preoccupied with his delusions. He continues to make bizarre statements at times. He is not speaking about "evil technology" any longer. He states that he started taking his medications and is agreeable to continue on taking them. He spoke about yesterday feeling anxious and needing a shot in his buttock to help him. States that he does not need to go to any groups at this time and has not been participating. He continues to have poor insight and judgment. At this time patient denies any suicidal or homical ideations, intent or plan. Patient denies any visual hallucinations and denies any paranoia or delusions. He states that he slept fairly last night Mental Status Exam: General Appearance: Patient appears to be a tall, overweight, stated age is alert, directable, and attempts to cooperate. Patient appears to have poor hygiene and grooming. Long sexton and long hair. Behavior: Patient is seated without any agitated behavior. Speech: Patient's speech is fluent and nonpressured. Soft spoken Mood/Affect: Patient reports their mood is "alright", affect is congruent and constricted. Suicidality/Homicidality: Patient denies having any homicidal ideation intent or plan. Denies any suicidal ideations intent or plan Perceptions: Patient denies any visual hallucinations and today claims that the auditory hallucination has improved. Though content/process: Delusional, mildly improving. Bizarre statements at times. Memory and concentration: AOX3, grossly intact for the purposes of this session. Judgment and insight: poor, improving mildly Assessment Schizoaffective disorder unspecified Plan: -Patient continues to meet criteria for inpatient psychiatric admission for symptom stabilization and safety. Patient has not signed adult voluntary form and medication consent and was placed in patient's chart. -Medications: Continue with Haldol 10 mg daily at bedtime +5 mg daily for psychosis. Patient will likely need a Haldol D injection prior to discharge to ensure compliance. Trazodone 50 mg daily at bedtime for insomnia/mood. -When necessary Ativan and Haldol for agitation/aggression. -NRT -not needed as patient does not smoke -SW on board for discharge planning. Encouraged the patient to participate in milieu. Patient signed a waive and stip with his employment law attorney and is agreeable to the court order.
[2020-12-16] MEDS: haloperidoL 5 MG TAB PO SCH (08:50)
[2020-12-16] MEDS ORDERED: BENZTROPINE MESYLATE 1 MG TAB PO PRN (12:41)
--- NOTE | 2020-12-16 12:45 | P.PN ---
Progress Note - Text Progress Note Date: 12/16/20 Interval History: Patient was seen lying in his bed this morning and agreed to speak to copywriter. He pierced to have mild improvement in his hygiene and grooming today. He was fairly calm and cooperative with copywriter. He continues to ramble at times and was tangential/circumstantial. He is speaking in a soft tone of voice and was directable during conversation. He asked questions about his medications and was agreeable to take Haldol 10 mg twice a day. He claims that he does feel mildly improved with being on the Haldol at this time. He was focused on discharge and states that his mother is in town and wants to pick him up. He continues to be delusional at times and spoke about "technology" being behind someone and also continues to be religiously preoccupied. That use able to sleep throughout the night. He claims that he has not been going to groups. He continues to have poor insight and judgment appears to be chronic. At this time patient denies any suicidal or homical ideations, intent or plan. Patient denies any visual hallucinations and denies any paranoia or delusions. Mental Status Exam: General Appearance: Patient appears to be a tall, overweight, stated age is alert, directable, and attempts to cooperate. Patient appears to have improving hygiene and grooming. Long sexton and long hair. Behavior: Patient is seated without any agitated behavior. Speech: Patient's speech is fluent and nonpressured. Soft spoken Mood/Affect: Patient reports their mood is "better", affect is congruent and constricted. Suicidality/Homicidality: Patient denies having any homicidal ideation intent or plan. Denies any suicidal ideations intent or plan Perceptions: Patient denies any visual hallucinations and today claims that the auditory hallucination has improved. Though content/process: Delusional, mildly improving. Initially preoccupied, mildly improving. Memory and concentration: AOX3, grossly intact for the purposes of this session. Judgment and insight: Chronically poor, improving mildly Assessment Schizoaffective disorder unspecified Plan: -Patient continues to meet criteria for inpatient psychiatric admission for symptom stabilization and safety. Patient has not signed adult voluntary form and medication consent and was placed in patient's chart. -Medications: increased Haldol 10 mg BID for psychosis. Patient will likely need a Haldol D injection prior to discharge to ensure compliance, will plan to give dose on saturday. added cogentin 1mg bid prn for eps/muscle spasms. Trazodone 50 mg daily at bedtime for insomnia/mood. -When necessary Ativan and Haldol for agitation/aggression. -NRT -not needed as patient does not smoke -SW on board for discharge planning. Encouraged the patient to participate in milieu. Patient signed a waive and stip with his insurance defense attorney and is agreeable to the court order. likely discharge saturday next week as patient will have an intake with ACT team on the unit prior to discharg. Shaker Tender will plan on calling patients mother today for further information as requested.
[2020-12-16] MEDS ORDERED: haloperidoL 5 MG TAB PO SCH (21:00)
[2020-12-17] MEDS: haloperidoL 5 MG TAB PO SCH (08:19)
--- NOTE | 2020-12-17 18:24 | PN ---
PROGRESS NOTE DATE OF SERVICE: 12/17/2020 CHIEF COMPLAINT: The patient was having auditory hallucinations and delusional thinking. His thoughts are quite disorganized. INTERVAL HISTORY: Patient has been doing fair. He had a quiet day yesterday. He continues to keep to himself. He will come out on the unit some though does not interact much with others. He chose not to attend groups yesterday. He said he slept fairly well last night. Today when I first saw him he was in his room. He did come down to the office. He has not attended groups today. He talks in very vague terms as far as his general situation. He makes references to needing to think through his issues through his muslim ideas. Seemed to make some suggestions that somehow medications and his spiritual issues are in competition with one another, though it was hard to be clear what he was saying. He said that Dr. Salazar had considered going up on his morning Haldol but deferred because of sedation. It is noted that Dr. Salazar indicated in his progress note yesterday that he increased Haldol to 10 mg twice a day in anticipation of the patient receiving Haldol Decanoate. On the other hand, orders remain the same with Haldol 5 mg in the morning, 10 mg at bedtime. When I talked to the patient about this option or possibly increasing the nighttime dose to 15 mg, the patient made some contradictory statements and it was hard to be clear what his thoughts were on it. He seemed to be mostly relieved when I said that I would leave medications alone today and just continue to re-evaluate. The patient denied any significant problems or concerns relating to his medications. MENTAL STATUS EXAM: Patient gave fair eye contact at best. He was restless. He answered some questions with brief responses. Most of the time his responses were vague and he would make tangential comments, it was hard to follow his train of thought. His affect was blunted, his mood reserved. He seemed somewhat distressed. He continues to show delusional thinking. He voiced no thoughts of harm. He is oriented to circumstances and surroundings. ASSESSMENT: I will continue the current diagnosis and treatment plan. We will continue to make efforts to engage the patient in individual and group therapeutic activities. I will continue to encourage the patient to make some groups as well as to come out and do some physical activity such as some therapeutic walking. At this point I will continue psychotropic medications the same. I briefly reviewed medication issues with the patient though kept the discussion limited as he was not too inclined to engage much in the conversation. We will focus on stabilization and discharge planning. GARETT / PURNIMA: [id number] / MTDD
[2020-12-18] MEDS: haloperidoL 5 MG TAB PO SCH (09:05)
--- NOTE | 2020-12-18 12:31 | PN ---
PROGRESS NOTE DATE OF SERVICE: 12/18/2020. CHIEF COMPLAINT: The patient was having auditory hallucinations and delusional thinking. His thoughts are quite disorganized. INTERVAL HISTORY: Patient continues in pretty much the same mode. He had a quiet day yesterday. Mostly he keeps to himself. He spends a fair amount of time in his room. He really does not interact too much with others. He chose not to attend groups yesterday. He slept well last night. Today he has been in the same level of functioning, mostly he is in his room. He did not attend groups today so far. He voiced no specific complaints or concerns. When I asked him specific questions about his medications he tended to minimize any issues. His only focus without soon he would be able to be discharged. He did not voice any immediate issues regarding side effects or problems with his medications. MENTAL STATUS: Patient was slowed in psychomotor activity. He responded to questions with pretty much one-word responses at most. He did not really say anything spontaneously. His affect was blunted his mood reserved. He seemed a little distressed, though would not voice any issues in regard to that. There continues to be indications of his having thoughts of unreality. He voiced no thoughts of harm. He was oriented and alert. ASSESSMENT: I will continue the current diagnosis and treatment plan. I will continue psychotropic medications the same. The patient continues to show quite a bit of withdrawal emotionally and in his general function. There will be questions regarding how he functions on the unit as to what we would anticipate in regard to discharge. We will coordinate with outpatient resources and focus on stabilization and discharge planning. GARETT / PURNIMA: [id number] /
[2020-12-19] MEDS: haloperidoL 5 MG TAB PO SCH (08:09)
[2020-12-19] MEDS ORDERED: HALOPERIDOL DECANOATE 100 MG/ML 1 ML VIAL IM STA (10:37)
--- NOTE | 2020-12-19 12:58 | P.PN ---
Progress Note - Text Progress Note Date: 12/19/20 Interval History: Patient was seen lying in his bed this morning and agreed to speak to financial writer. He appears to have mild improvement in his hygiene and grooming today. He was fairly calm and cooperative with financial writer. He continues to ramble at times. He is less religiously preoccupied today. He claims that he spoke with his mother over the phone on the weekend and states that everything is "fine". She was fairly vague about their conversation. He asked questions about his medications today and was agreeable to take the long-acting Haldol shot today. Police that he can still take the oral medications. He was focused on discharge and states that his mother is in town and wants to pick him up. That use able to sleep throughout the night. He claims that he has not been going to groups. He continues to have poor insight and judgment appears to be chronic. At this time patient denies any suicidal or homical ideations, intent or plan. Patient denies any visual hallucinations and denies any paranoia or delusions. His demeanor is calm and cooperative. Mental Status Exam: General Appearance: Patient appears to be a tall, overweight, stated age is alert, directable, and attempts to cooperate. Patient appears to have improving hygiene and grooming. Long sexton and long hair. Behavior: Patient is seated without any agitated behavior. Cooperative Speech: Patient's speech is fluent and nonpressured. Soft spoken Mood/Affect: Patient reports their mood is "ok", affect is congruent and constricted. Suicidality/Homicidality: Patient denies having any homicidal ideation intent or plan. Denies any suicidal ideations intent or plan Perceptions: Patient denies any visual hallucinations and today claims that the auditory hallucination has improved. Though content/process: Delusional, improving. Less religiously preoccupied today. Memory and concentration: AOX3, grossly intact for the purposes of this session. Judgment and insight: Chronically poor, improving mildly Assessment Schizoaffective disorder unspecified Plan: -Patient continues to meet criteria for inpatient psychiatric admission for symptom stabilization and safety. Patient has not signed adult voluntary form and medication consent and was placed in patient's chart. -Medications: Haldol 10 mg qhs + 5 mg daily for psychosis. Patient will receive Haldol D1 100 mg IM today and next dose will be due on 01/02. cogentin 1mg bid prn for eps/muscle spasms. Trazodone 50 mg daily at bedtime for insomnia/mood. -When necessary Ativan and Haldol for agitation/aggression. -NRT -not needed as patient does not smoke -SW on board for discharge planning. Encouraged the patient to participate in milieu. Patient signed a waive and stip with his workers compensation attorney and is agreeable to the court order. plan for discharge tomorrow. will have an intake with ACT team on the unit prior to discharg.
[2020-12-20] MEDS: haloperidoL 5 MG TAB PO SCH (08:35)
--- NOTE | 2020-12-20 09:57 | P.PN ---
Progress Note - Text Progress Note Date: 12/20/20 Interval History: Patient was seen lying in his bed this morning and agreed to speak to sign writer letterer or painter. He appears to have mild improvement in his hygiene and grooming today. He was fairly calm and cooperative with sign writer letterer or painter however stated that he continues to be delusional and religiously preoccupied. He claims that things are "consuming me" however was fairly vague and rambled on. He did appear to be fairly appropriate though with conversation with sign writer letterer or painter and does not appear to be agitated or irrit able today. He denied any depression or anxiety today and states that his mood is "fine". He was asking about possible discharge. Business Process Expert spoke with patient about receiving an extra dose of Haldol D tomorrow. He claims that he spoke with his mother over the phone every day. Claims that he was able to sleep throughout the night. He claims that he has not been going to groups. He continues to have poor insight and judgment appears to be chronic. At this time patient denies any suicidal or homical ideations, intent or plan. Patient denies any visual hallucinations and denies any paranoia or delusions. His demeanor is calm and cooperative. Mental Status Exam: General Appearance: Patient appears to be a tall, overweight, stated age is alert, directable, and attempts to cooperate. Patient appears to have improving hygiene and grooming. Long sexton and long hair. Behavior: Patient is seated without any agitated behavior. Attempts to be Cooperative Speech: Patient's speech is fluent and nonpressured. Soft spoken Mood/Affect: Patient reports their mood is "fine", affect is congruent and constricted. Suicidality/Homicidality: Patient denies having any homicidal ideation intent or plan. Denies any suicidal ideations intent or plan Perceptions: Patient denies any visual hallucinations and today claims that the auditory hallucination has improved. Though content/process: Delusional, improving. Less religiously preoccupied today. Memory and concentration: AOX3, grossly intact for the purposes of this session. Judgment and insight: Chronically poor, improving mildly Assessment Schizoaffective disorder unspecified Plan: -Patient continues to meet criteria for inpatient psychiatric admission for symptom stabilization and safety. Patient has not signed adult voluntary form and medication consent and was placed in patient's chart. -Medications: Haldol 10 mg qhs + 5 mg daily for psychosis. Patient eceived Haldol D1 100 mg IM on 12/19/20 and will receive 50 mg IM dose tomorrow on 12/21/20 and next dose will be due 150 mg IM on 01/02. cogentin 1mg bid prn for eps/muscle spasms. Trazodone 50 mg daily at bedtime for insomnia/mood. -When necessary Ativan and Haldol for agitation/aggression. -NRT -not needed as patient does not smoke -SW on board for discharge planning. Encouraged the patient to participate in milieu. Patient signed a waive and stip with his deputy prosecuting attorney and is agreeable to the court order. Plan for discharge liekly tomorrow after patient receiveshis second dose of HAldol D. will have an intake with ACT team on the unit prior to discharge. -sign writer letterer or painter spoke with patients juwan Coburn over the phone at [phone] who expressed her concerns and gave further information about the patient and his sx and functioning growing up. She was agreeable to come tomorrow for pts discharge and agrees to the plan of the second dose of Haldol D for tomorrow.
--- NOTE | 2020-12-20 11:27 | P.DS ---
Providers Date of admission: 12/03/20 01:23 Expected date of discharge: 12/20/20 Attending physician: Tera Salazar MD Consults: 12/03/20 01:25 Consult Physician Routine Consulting Provider: Costa Physician Consult Reason/Comments: H&P for mental health admission Do you want consulting provider notified?: Yes Primary care physician: [facility] [place] - Discharge Diagnosis(es) (1) Schizoaffective disorder Current Visit: Yes Status: Acute Priority: High Hospital Course: Admission HPI: Admission note was completed by check writer salesperson "Patient is a 35-year-old male who currently lives alone in an apartment and is has 2 kids and is currently unemployed. Patient presented to the hospital on petition by a assistant chief of police who states that patient was speaking about his intestines changing and feeling snakes spurs coming out of his body. According to petition patient was also speaking of electrode device is affecting his spiritual being and also talking about preachers in [place] it took over his mind. Patients mother from [place] called 911 to have patient brought in the hospital for evaluation. Patient apparently was agitated in the ER and was admitted involuntarily to the mental health unit. Patient was seen today lying in bed and appeared to be disheveled in appearance had a long sexton. He was soft spoken however smoke but his mom calling the telecom billing analyst because he told her to. He states that he has been hearing voices of a " man" and spoke significantly about "evil technology" that has been affecting him in various ways. He states that he feels he is not being heard and that he is not hallucinating. He states that he is feeling paranoid and other people. He also spoke about social media and "breaking off ties". He also spoke about a "I body". He had loose associations and rambles at times. He was fairly delusional and had poor reality testing. He claims that his sleep has been "on and off" and appetite as been fair. He appeared to be fairly distress related to his delusions. Patient denies any suicidal or homicidal ideations intent or plan. At this time patient denies any visual hallucinations. Patient admits to using no recreational drugs or cigarettes. She did not provide a UDS." Hospital course: Upon admission to the unit patient was admitted involuntarily on a petition and certificate and a second certificate was completed and faxed with the courts. Patient ended up signing a waive and stip with the collections attorney and agreeing to treatment and being on a treatment order. Patient got along well with other patients on the unit and followed unit protocol. Patient was initially noncompliant with medications however with time patient became more compliant with the medications and denied any side effects throughout hospital course. Patient was started on haloperidol and titrated up to dose of 10 mg at nighttime and 5 mg daily for psychosis. Patient was given dose of Haldol D1 100 mg IM on 12/19/2020 and will be given an extra 50 mg IM on 12/21 by the ACT team tomorrow a fter discharge. Patient will be due for his next dose of Haldol D IM 150 mg on 01/02/2021 and will be due every 2 weeks thereafter. Patient spoke of his stressors ever did not engage much in group therapy. Patient was also seen by medical team for history and physical exam. Throughout the course of the hospitalization patient gradually improved with regards to mood, anxiety, psychosis, sleep and showed good improvement in his symptoms prior to discharge. Patient does have chronic auditory hallucinations and delusions/hoahaoism preoccupation however was calm and appropriate today and has been caring for himself regarding his hygiene and grooming and also eating and has been compliant with treatment. On the day of discharge patient denied any suicidal or homicidal ideations intent or plan denied any visual hallucinations. Patient endorsed wanting to live for his health and family. The patient denied any access to guns or weapons. Patient does not have a significant history of subs tance abuse however was counseled on abstaining from all substances including alcohol and marijuana. Patient was also counseled on the medications and need for regular compliance and was encouraged to follow-up with their outpatient appointment for mental health and also for primary care. Prior to discharge check writer salesperson spoke with patient's mother over the phone Belle to ensure patient safety and that no guns or weapons are in the house. She will be able to watch patient closely for the next few days and transition him back to his house and daily living. Patient will also be seen daily by the act team for treatment and symptom monitoring. Mental status exam: General Appearance: Patient appears to be tall, overweight, stated age is alert, pleasant, and cooperative. Patient is in no acute distress and has improved hygiene and grooming Behavior: Patient is calmly seated without any agitated behavior. Cooperative Speech: Patient's speech is fluent and nonpressured. Mood/Affect: Patient reports their mood is "fine", affect is congruent and constricted Suicidality/Homicidality: Patient denies having any suicidal or homicidal ideation intent or plan. Perceptions: Patient denies any visual hallucinations. chronic auditory hallucinations. Though content/process: Delusions and hoahaoism preoccupation however this has improved. more future oriented. directable. Memory and concentration: AOX3, grossly intact for the purposes of this session. Can spell "WORLD" backwards correctly. Judgment and insight: chronically poor, however has improved with guarded prognosis Impression: Schizoaffective disorder unspecified Plan: -Continue with discharge today as patient has improved and stabilized psychiatrically and is not currently an imminent threat to himself and/or others. Patient has chronically poor insight and will be a ongoing elevated risk for deompensation or potential self harm or harm to others possibly. -Continue medications: Haldol by mouth 5 mg twice a day for psychosis to be discontinued after 4 days. Patient was given Haldol D1 100 mg IM on 12/19/2020 and will be given an extra dose of 50 mg IM on 12/21 by the act team. He will be due for his next Haldol D IM 150 mg on 01/02/21 and a every 2 weeks thereafter. trazodone 50 mg po prn qhs for insomnia. cogentin 1 mg daily prn for eps/muscle spasms. -Patient was counseled on the need for medication compliance and appropriate follow-up at mental health and also primary care for medical issues. Patient verbalized understanding and agreed. -Social work to arrange for and conduct family meeting to ensure safety upon discharge and answer any questions/concerns. Social work also to arrange for patients follow up appointments with [facility] for psychiatric care along with follow up with primary care provider. Patient will have an intake on the unit today prior to d/c and will be followed by ACT team daily. -Patient counseled on abstaining from recreational drugs and marijuana and alcohol. Was informed/educated on the adverse effects on their physical and mental health. Patient verbally agreed and understood. -Patient was instructed to return to the hospital or seek immediate medical care if their psychiatric or medical symptoms do worsen or reoccur. Allergies Allergy/AdvReac Type Severity Reaction Status Date / Time divalproex sodium AdvReac Confusion Verified 12/11/20 12:55 [From Depakote] lithium AdvReac Unknown Verified 12/11/20 12:55 Laboratory Results Coronavirus (PCR) Not Detected (Not Detectd) 12/03/20 00:33 Vital Signs Temp 97.8 F 12/19/20 06:38 Pulse 113 H 12/19/20 06:38 Resp 18 12/19/20 06:38 BP 103/61 12/17/20 05:00 Pulse Ox 98 12/02/20 20:20 Patient Condition at Discharge: Stable Plan - Discharge Summary Discharge Rx Participant: No New Discharge Prescriptions: New traZODone HCL [Desyrel] 50 mg PO HS PRN 30 Days tab PRN Reason: Insomnia haloperidoL [Haldol] 5 mg PO BID 4 Days tab Acetaminophen Tab [Tylenol] 650 mg PO Q4HR PRN tab PRN Reason: Pain/Discomfort Benztropine Mesylate [Cogentin] 1 mg PO DAILY PRN 30 Days tab PRN Reason: muscle spasms/EPS sx Haloperidol Decanoate [Haldol D] 50 mg IM ONCE #1 each Haloperidol Decanoate [Haldol D] 150 mg IM [id number] #1 each Discontinued Paliperidone IM [Invega Sustenna] 234 mg IM DIRECTED Discharge Medication List Acetaminophen Tab [Tylenol] 650 mg PO Q4HR PRN tab 12/20/20 [Rx] Benztropine Mesylate [Cogentin] 1 mg PO DAILY PRN 30 Days tab 12/20/20 [Rx] Haloperidol Decanoate [Haldol D] 50 mg IM ONCE #1 each 12/20/20 [Rx] Haloperidol Decanoate [Haldol D] 150 mg IM [id number] #1 each 12/20/20 [Rx] haloperidoL [Haldol] 5 mg PO BID 4 Days tab 12/20/20 [Rx] traZODone HCL [Desyrel] 50 mg PO HS PRN 30 Days tab 12/20/20 [Rx] Follow up Appointment(s)/Referral(s): [facility] [Primary Care Provider] - 1-2 days Activity/Diet/Wound Care/Special Instructions: Activity and diet as tolerated. Avoid the use of street drugs and alcohol. Take all medications as prescribed. When you are in need of refills on your medications please contact your medical provider and/or outpatient psychiatrist to have this done. Please go to scheduled outpatient appointment for aftercare treatment. If symptoms return or become worse, call the crisis line at and/or go to the nearest emergency room for evaluation. Discharge Disposition: HOME SELF-CARE
[2020-12-21 07:11] VITALS: RESP 16
[2020-12-21] MEDS ORDERED: HALOPERIDOL DECANOATE 50 MG/ML 1 ML VIAL IM ONE (08:00)
[2020-12-21] MEDS: haloperidoL 5 MG TAB PO SCH (08:10)
--- NOTE | 2020-12-21 11:21 | P.PN ---
Progress Note - Text Progress Note Date: 12/21/20 Interval History: Patient was seen lying in his bed this morning and agreed to speak to global technical writer. He appears to have mild improvement in his hygiene and grooming today. He was fairly calm and cooperative with global technical writer today. He was mildly delusional once again today speaking about "evil technology". He states that overall he is doing better today compared to yesterday. He states that he feels the Haldol has been helping him stay calmer and "have a clear mind". He states that he has been taking the medications and received his Haldol D injection today. He claims that he is agreeable to continue receiving the Haldol D injection however claims that he does not want to sign any kind of treatment agreement with [facility]. He did not describe why and was fairly vague about this. He spoke about "my rights". He claims that he spoke with his mother over the phone every day. Claims that he was able to sleep throughout the night. He claims that he has not been going to groups. He continues to have poor insight and judgment appears to be chronic. At this time patient denies any suicidal or homical ideations, intent or plan. Patient denies any visual hallucinations. His demeanor is calm and cooperative. Mental Status Exam: General Appearance: Patient appears to be a tall, overweight, stated age is alert, directable, and attempts to cooperate. Patient appears to have improving hygiene and grooming. Long sexton and long hair. Behavior: Patient is seated without any agitated behavior. Attempts to be Cooperative Speech: Patient's speech is fluent and nonpressured. Soft spoken Mood/Affect: Patient reports their mood is "ok", affect is congruent and constricted. Suicidality/Homicidality: Patient denies having any homicidal ideation intent or plan. Denies any suicidal ideations intent or plan Perceptions: Patient denies any visual hallucinations and today claims that the auditory hallucination has improved. Though content/process: Delusional, improving. Less religiously preoccupied today, improving mildly. Memory and concentration: AOX3, grossly intact for the purposes of this session. Judgment and insight: Chronically poor Assessment Schizoaffective disorder unspecified Plan: -Patient continues to meet criteria for inpatient psychiatric admission for symptom stabilization and safety. Patient has not signed adult voluntary form and medication consent and was placed in patient's chart. -Medications: Haldol PO 5 mg qhs + 5 mg daily for psychosis continue to taper off. Patient received Haldol D1 100 mg IM on 12/19/20 and 50 mg IM dose on 12/21/20 and next dose will be due 150 mg IM on 01/02. cogentin 1mg bid prn for eps/muscle spasms. Trazodone 50 mg daily at bedtime for insomnia/mood. -When necessary Ativan and Haldol for agitation/aggression. -NRT -not needed as patient does not smoke -SW on board for discharge planning. Encouraged the patient to participate in milieu. Patient signed a waive and stip with his tour coordinator and is agreeable to the court order. Plan for discharge whenever patient is agreeable to sign the treatment agreement with [facility] to have the act team continue to monitor patient as he is transitioned back home. Patient is currently refusing this and will seek advice from the courts legally if this needs to be accomplished prior to d ischarge.
[2020-12-21] MEDS ORDERED: haloperidoL 5 MG TAB PO SCH (21:00)
[2020-12-22 07:05] VITALS: BP 103/67; PULSE 63; TEMP 97.3
[2020-12-22] MEDS: haloperidoL 5 MG TAB PO SCH (08:20)
--- NOTE | 2020-12-22 13:46 | P.DS ---
Providers Date of admission: 12/03/20 01:23 Expected date of discharge: 12/22/20 Attending physician: Tera Salazar MD Consults: 12/03/20 01:25 Consult Physician Routine Consulting Provider: [place] Physician Consult Reason/Comments: H&P for mental health admission Do you want consulting provider notified?: Yes Primary care physician: [facility] [place] - Discharge Diagnosis(es) (1) Schizoaffective disorder Current Visit: Yes Status: Acute Priority: High Hospital Course: Admission HPI: Admission note was completed by writer technical publications "Patient is a 35-year-old male who currently lives alone in an apartment and is has 2 kids and is currently unemployed. Patient presented to the hospital on petition by a police manager who states that patient was speaking about his intestines changing and feeling snakes spurs coming out of his body. According to petition patient was also speaking of electrode device is affecting his spiritual being and also talking about preachers in [place] it took over his mind. Patients mother from [place] called 911 to have patient brought in the hospital for evaluation. Patient apparently was agitated in the ER and was admitted involuntarily to the mental health unit. Patient was seen today lying in bed and appeared to be disheveled in appearance had a long sexton. He was soft spoken however smoke but his mom calling the certified coding specialist because he told her to. He states that he has been hearing voices of a " man" and spoke significantly about "evil technology" that has been affecting him in various ways. He states that he feels he is not being heard and that he is not hallucinating. He states that he is feeling paranoid and other people. He also spoke about social media and "breaking off ties". He also spoke about a "I body". He had loose associations and rambles at times. He was fairly delusional and had poor reality testing. He claims that his sleep has been "on and off" and appetite as been fair. He appeared to be fairly distress related to his delusions. Patient denies any suicidal or homicidal ideations intent or plan. At this time patient denies any visual hallucinations. Patient admits to using no recreational drugs or cigarettes. She did not provide a UDS." Hospital course: Upon admission to the unit patient was admitted involuntarily on a petition and certificate and a second certificate was completed and faxed with the courts. Patient ended up signing a waive and stip with the agriculture specialist and agreeing to treatment and being on a treatment order. Patient got along well with other patients on the unit and followed unit protocol. Patient was initially noncompliant with medications however with time patient became more compliant with the medications and denied any side effects throughout hospital course. Patient was started on haloperidol and titrated up to dose of 10 mg at nighttime and 5 mg daily for psychosis. Patient was given dose of Haldol D1 100 mg IM on 12/19/2020 and 50 mg on the unit prior to d/c. Patient will be due for his next dose of Haldol D IM 150 mg on 01/02/2021 and will be due every 2 weeks thereafter. Patient spoke of his stressors ever did not engage much in group therapy. Patient was also seen by medical team for history and physical exam. Throughout the course of the hospitalization patient gradually improved with regards to mood, anxiety, psychosis, sleep and showed good improvement in his symptoms prior to discharge. Patient does have chronic auditory hallucinations and delusions/mormon preoccupation which has improved and was calm and appropriate today and has been caring for himself regarding his hygiene and grooming and also eating and has been compliant with treatment. On the day of discharge patient denied any suicidal or homicidal ideations intent or plan denied any visual hallucinations. Patient endorsed wanting to live for his health and family. The patient denied any access to guns or weapons. Patient does not have a significant history of substance abuse however was counseled on abstaining from all substances including alcohol and marijuana. Patient was also counseled on the medications and need for regular compliance and was encouraged to follow-up with their outpatient appointment for mental health and also for primary care. Finance And Administration Manager spoke with patient's mother over the phone Belle to ensure patient safety and that no guns or weapons are in the house. She will be able to watch patient closely for the next few days and transition him back to his house and daily living. Patient will also be seen daily by the act team and [facility] for treatment and symptom monitoring. Mental status exam: General Appearance: Patient appears to be tall, overweight, stated age is alert, pleasant, and cooperative. Patient is in no acute distress and has improved hygiene and grooming Behavior: Patient is calmly seated without any agitated behavior. Cooperative Speech: Patient's speech is fluent and nonpressured. Mood/Affect: Patient reports their mood is "good", affect is congruent Suicidality/Homicidality: Patient denies having any suicidal or homicidal ideation intent or plan. Perceptions: Patient denies any visual hallucinations. chronic auditory hallucinations. Though content/process: Delusions and mormon preoccupation however this has improved. more future oriented. directable. Memory and concentration: AOX3, grossly intact for the purposes of this session. Can spell "WORLD" backwards correctly. Judgment and insight: chronically poor, however has improved with guarded prognosis Impression: Schizoaffective disorder unspecified Plan: -Continue with discharge today as patient has improved and stabilized psychiatrically and is not currently an imminent threat to himself and/or others. Patient has chronically poor insight and will be a ongoing elevated risk for decompensation or potential self harm or harm to others possibly. -Continue medications: Haldol by mouth 5 mg twice a day for psychosis to be discontinued after 4 days. Patient was given Haldol D1 100 mg IM on 12/19/2020 and a dose of 50 mg IM while on the unit. He will be due for his next Haldol D IM 150 mg on 01/02/21 and a every 2 weeks thereafter. trazodone 50 mg po prn qhs for insomnia. cogentin 1 mg daily prn for eps/muscle spasms. -Patient was counseled on the need for medication compliance and appropriate follow-up at mental health and also primary care for medical issues. Patient verbalized understanding and agreed. -Social work to arrange for and conduct family meeting to ensure safety upon discharge and answer any questions/concerns. Social work also to arrange for p atients follow up appointments with [facility] for psychiatric care along with follow up with primary care provider. Patient will have an intake on the unit today prior to d/c and will be followed by ACT team daily. -Patient counseled on abstaining from recreational drugs and marijuana and alcohol. Was informed/educated on the adverse effects on their physical and mental health. Patient verbally agreed and understood. -Patient was instructed to return to the hospital or seek immediate medical care if their psychiatric or medical symptoms do worsen or reoccur. Allergies Allergy/AdvReac Type Severity Reaction Status Date / Time divalproex sodium AdvReac Confusion Verified 12/11/20 12:55 [From Depakote] lithium AdvReac Unknown Verified 12/11/20 12:55 Laboratory Results Coronavirus (PCR) Not Detected (Not Detectd) 12/03/20 00:33 Vital Signs Temp 97.3 F L 12/22/20 06:45 Pulse 63 12/22/20 06:45 Resp 16 12/22/20 06:45 BP 103/67 12/22/20 06:45 Pulse Ox 98 12/02/20 20:20 Patient Condition at Discharge: Stable Plan - Discharge Summary Discharge Rx Participant: No New Discharge Prescriptions: New traZODone HCL [Desyrel] 50 mg PO HS PRN 30 Days tab PRN Reason: Insomnia haloperidoL [Haldol] 5 mg PO BID 4 Days tab Acetaminophen Tab [Tylenol] 650 mg PO Q4HR PRN tab PRN Reason: Pain/Discomfort Benztropine Mesylate [Cogentin] 1 mg PO DAILY PRN 30 Days tab PRN Reason: muscle spasms/EPS sx Haloperidol Decanoate [Haldol D] 50 mg IM ONCE #1 each Haloperidol Decanoate [Haldol D] 150 mg IM [id number] #1 each Discontinued Paliperidone IM [Invega Sustenna] 234 mg IM DIRECTED Discharge Medication List Acetaminophen Tab [Tylenol] 650 mg PO Q4HR PRN tab 12/20/20 [Rx] Benztropine Mesylate [Cogentin] 1 mg PO DAILY PRN 30 Days tab 12/20/20 [Rx] Haloperidol Decanoate [Haldol D] 50 mg IM ONCE #1 each 12/20/20 [Rx] Haloperidol Decanoate [Haldol D] 150 mg IM [id number] #1 each 12/20/20 [Rx] haloperidoL [Haldol] 5 mg PO BID 4 Days tab 12/20/20 [Rx] traZODone HCL [Desyrel] 50 mg PO HS PRN 30 Days tab 12/20/20 [Rx] Follow up Appointment(s)/Referral(s): [facility] [Outside] - 12/22/20 3:00 pm (ACT team Dr Darío cruz pending.) [facility] [Primary Care Provider] - 1-2 days Patient Instructions/Handouts: Mood Disorders (DC), Bipolar Disorder (DC), Schizoaffective Disorder (DC), Psychotic Disorder (DC), Suicide Prevention (DC) Activity/Diet/Wound Care/Special Instructions: Activity and diet as tolerated. Avoid the use of street drugs and alcohol. Take all medications as prescribed. When you are in need of refills on your medications please contact your medical provider and/or outpatient psychiatrist to have this done. Please go to scheduled outpatient appointment for aftercare treatment. If symptoms return or become worse, call the crisis line at and/or go to the nearest emergency room for evaluation. Discharge Disposition: HOME SELF-CARE
== END 2020-12-22 14:02 | disposition home or self-care (01) | DRG 885 ==
LOC: EC 20:10 → 3MHU 12-03 01:23
PROVIDERS: ADMIT Psychiatry & Neurology Psychiatry; ATTEND Psychiatry & Neurology Psychiatry
DX: F25.9 Schizoaffective disorder, unspecified (principal); F31.64 Bipolar disorder, current episode mixed, severe, with psychotic features; Z78.1 Physical restraint status; F41.9 Anxiety disorder, unspecified; G47.00 Insomnia, unspecified; Z56.0 Unemployment, unspecified; Z79.899 Other long term (current) drug therapy; Z91.14 Patient's other noncompliance with medication regimen; M62.838 Other muscle spasm; Z20.822 Contact with and (suspected) exposure to COVID-19
CPT/HCPCS: 82075; 87635; 96372; 99285